=== PATIENT | female | born 1985 | race Hispanic/Latino ===

== ENCOUNTER 2018-10-15 18:24 | Emergency (ER) | payer SELFPAY ==
[2018-10-15] MEDS ORDERED: ONDANSETRON 4 MG/2 ML VIAL ONE (19:07)
[2018-10-15] MEDS ORDERED: NA CHLORIDE 0.9% 1,000 ML ONE (19:07)
[2018-10-15] MEDS ORDERED: KETOROLAC 30 MG/ML INJ ONE (19:07)
[2018-10-15 19:24] LABS: Absolute Lymphocytes (CBC) 2.9 K/uL (0.7-4.9); Basophils % 0.3 % (0-1.3); Hematocrit 31.5 % (36.0-45.0); Lymphocytes % 35.5 % (15.3-44.8); MPV 9.4 fL (7.6-11.3); RBC Red Blood Cell Count 4.68 M/uL (3.86-4.86)
[2018-10-15 19:34] LABS: Urine Blood NEGATIVE (NEG); Urine Glucose 2+ (NEG); Urine Protein NEGATIVE (NEG); Urine pH 5.5 (5.0-7.0)
[2018-10-15 19:36] LABS: ALT/SGPT 21 U/L (12-78); AST/SGOT 11 U/L (15-37); Alkaline Phosphatase 82 U/L (45-117); BUN Blood Urea Nitrogen 10 mg/dL (7-18); Bicarbonate 24 mmol/L (21-32); Bilirubin Direct 0.1 mg/dL (0-0.2); Bilirubin Total 0.7 mg/dL (0.2-1.0); Glucose Level 226 mg/dL (74-106); Lipase 303 U/L (73-393); Potassium 3.9 mmol/L (3.5-5.1); Protein, Total 7.6 g/dL (6.4-8.2); Sodium Level 136 mmol/L (136-145)
--- NOTE | 2018-10-15 20:36 | RAD REPORT ---
EXAM DESCRIPTION: CT - Abdomen Pelvis W Contrast - 10/15/2018 8:14 pm CLINICAL HISTORY: Upper abdominal pain COMPARISON: None. TECHNIQUE: Biphasic, helical CT imaging of the abdomen and pelvis was performed following 100 ml non -ionic IV contrast. No oral contrast was given. All CT scans are performed using dose optimization technique as appropriate and may include automated exposure control or mA/KV adjustment according to patient size. FINDINGS: No suspicious findings in the lung bases. Liver size is normal. In the anterior right lobe a 2.5 centimeter round circumscribed homogeneous hyp erintense focus is seen on arterial phase imaging. This is in the setting of a mild diffuse fatty inf iltration of the liver. No fat or calcium component. On venous phase imaging the mass is slightly hyp ointense to the surrounding parenchyma. No other focal liver lesions seen. Hepatic adenoma would be f avored. No prior imaging is available. An aggressive process is unlikely. This is not likely related to the patient's acute clinical presentation. Spleen and pancreas show no suspicious findings. Gallbladder and biliary tree are also without suspic ious finding. Symmetric renal function is seen with no hydronephrosis or suspicious renal mass. No pyelonephritis o r acute parenchymal process. No bladder abnormalities. Small cyst seen in the lateral left kidney. No adrenal abnormalities. No dilated bowel loops or bowel wall thickening. No appendicitis findings. A small involuting right o varian cyst is present. Uterus is heterogeneous and may contain small fibroids. No acute uterine find ing suspected. No free air, free fluid or inflammatory stranding. No hernia, mass or bulky lymphaden opathy. No suspicious bony findings. IMPRESSION: IV contrast enhanced CT imaging abdomen and pelvis shows no acute or emergent finding. The 2.5 centimeter mass in the anterior right lobe of the liver is favored to be adenoma. Aggressive etiology is not suspected. Follow-up CT or sonography in 6 months could be performed to re-evaluate o r monitor this finding.
[2018-10-15 20:41] LABS: Anisocytosis 1+; Blood Morphology Comment NOTED (NOT SEEN); Hypochromasia 1+; Ovalocytes 1+; Platelet Estimate ADEQ; Urine White Blood Cell Casts OK
--- NOTE | 2018-10-15 20:58 | EDPHYS ---
Physician Documentation [facility] Name: Monday Mackenzie Age: 33 yrs Sex: Female : 1985 Arrival Date: 10/15/2018 Time: 18:28 Bed 25 Private MD: ED Physician Rustam Chen HPI: 10/15 18:52 This 33 yrs old Female presents to ER via Unassigned with complaints of pm1 Abdominal Pain. 18:52 The patient presents with abdominal pain in the upper abdomen. Onset: The pm1 symptoms/episode began/occurred 3 day(s) ago. The symptoms radiate to back. Associated signs and symptoms: Pertinent positives: diarrhea, nausea, Pertinent negatives: chest pain, constipation, dysuria, fever, shortness of breath, vomiting. The symptoms are described as sharp, Twisting. Modifying factors: The symptoms are alleviated by nothing, the symptoms are aggravated by nothing. Severity of pain: in the emergency department the pain is actually worse. The patient has not experienced similar symptoms in the past. The patient has not recently seen a physician. AGILE QA TESTER: 19:15 LMP 09/29/2018 ca1 Historical: - Allergies: 18:56 No Known Allergies; ca1 - Home Meds: 18:56 Glimepiride Oral [Active]; ca1 - PMHx: 18:56 Diabetes - NIDDM; ca1 - PSHx: 18:56 ; ca1 - Immunization history:: Adult Immunizations up to date. - Social history:: Smoking status: Patient uses tobacco products, denies chronic smoking, but will smoke occasionally. - Ebola Screening: : Patient negative for fever greater than or equal to 101.5 degrees Fahrenheit, and additional compatible Ebola Virus Disease symptoms Patient denies exposure to infectious person Patient denies travel to an Ebola-affected area in the 21 days before illness onset No symptoms or risks identified at this time. ROS: 18:52 Constitutional: Negative for fever, chills, and weight loss, Eyes: Negative for injury, pm1 pain, redness, and discharge, ENT: Negative for injury, pain, and discharge, Neck: Negative for injury, pain, and swelling, Cardiovascular: Negative for chest pain, palpitations, and edema, Respiratory: Negative for shortness of breath, cough, wheezing, and pleuritic chest pain. 18:52 Back: Negative for injury and pain, : Negative for injury, bleeding, discharge, and swelling, MS/Extremity: Negative for injury and deformity, Skin: Negative for injury, rash, and discoloration, Neuro: Negative for headache, weakness, numbness, tingling, and seizure. 18:52 Abdomen/GI: Positive for abdominal pain, nausea, diarrhea, Negative for vomiting, constipation. Exam: 18:52 Constitutional: This is a well developed, well nourished patient who is awake, alert, pm1 and in no acute distress. Head/Face: Normocephalic, atraumatic. Eyes: Pupils equal round and reactive to light, extra-ocular motions intact. Lids and lashes normal. Conjunctiva and sclera are non-icteric and not injected. Cornea within normal limits. Periorbital areas with no swelling, redness, or edema. ENT: Nares patent. No nasal discharge, no septal abnormalities noted. Tympanic membranes are normal and external auditory canals are clear. Oropharynx with no redness, swelling, or masses, exudates, or evidence of obstruction, uvula midline. Mucous membranes moist. Neck: Trachea midline, no thyromegaly or masses palpated, and no cervical lymphadenopathy. Supple, full range of motion without nuchal rigidity, or vertebral point tenderness. No Meningismus. Chest/axilla: Normal chest wall appearance and motion. Nontender with no deformity. No lesions are appreciated. Cardiovascular: Regular rate and rhythm with a normal S1 and S2. No gallops, murmurs, or rubs. Normal PMI, no JVD. No pulse deficits. Respiratory: Lungs have equal breath sounds bilaterally, clear to auscultation and percussion. No rales, rhonchi or wheezes noted. No increased work of breathing, no retractions or nasal flaring. 18:52 Back: No spinal tenderness. No costovertebral tenderness. Full range of motion. Skin: Warm, dry with normal turgor. Normal color with no rashes, no lesions, and no evidence of cellulitis. MS/ Extremity: Pulses equal, no cyanosis. Neurovascular intact. Full, normal range of motion. 18:52 Abdomen/GI: Inspection: abdomen appears normal, Bowel sounds: normal, Palpation: soft, mild abdominal tenderness, in the epigastric area, right upper quadrant and left upper quadrant, mass, is not appreciated, rebound tenderness, is not appreciated. 18:52 Neuro: Orientation: is normal, Motor: is normal, moves all fours. Vital Signs: 18:56 BP 155 / 103; Pulse 82; Resp 18 S; Temp 98.5(O); Pulse Ox 100% on R/A; Weight 79.38 kg ca1 (R); Height 4 ft. 11 in. (149.86 cm) (R); Pain 8/10; 19:15 BP 138 / 86; Pulse 66; Resp 17 S; Pulse Ox 100% on R/A; ca1 20:00 BP 120 / 71; Pulse 86; Resp 16 S; Pulse Ox 100% on R/A; ca1 21:10 BP 128 / 81; Pulse 79; Resp 16 S; Pulse Ox 100% on R/A; ca1 18:56 Body Mass Index 35.35 (79.38 kg, 149.86 cm) ca1 MDM: 18:47 Patient medically screened. pm1 20:56 Data reviewed: vital signs. Data interpreted: Pulse oximetry: on room air is 100 %. pm1 Interpretation: normal. Counseling: I had a detailed discussion with the patient and/or guardian regarding: the historical points, exam findings, and any diagnostic results supporting the discharge/admit diagnosis, lab results, radiology results, the need for outpatient follow up, to return to the emergency department if symptoms worsen or persist or if there are any questions or concerns that arise at home. 10/15 18:51 Order name: Basic Metabolic Panel; Complete Time: 19:42 pm1 10/15 18:51 Order name: CBC with Diff; Complete Time: 20:53 pm1 10/15 18:51 Order name: Creatinine for Radiology; Complete Time: 19:42 pm1 10/15 18:51 Order name: Hepatic Function; Complete Time: 19:42 pm1 10/15 18:51 Order name: Lipase; Complete Time: 19:42 pm1 10/15 19:27 Order name: Urine Dipstick--Ancillary (enter results); Complete Time: 19:42 em1 10/15 18:51 Order name: Urine Dipstick-Ancillary (obtain specimen); Complete Time: 19:24 pm1 10/15 18:51 Order name: CT Abd/Pelvis - IV Contrast Only; Complete Time: 20:53 pm1 10/15 19:27 Order name: Urine --Ancillary (enter results); Complete Time: 19:42 em1 10/15 20:41 Order name: CBC Smear Scan; Complete Time: 20:53 EDAL 10/15 18:51 Order name: Urine Test (obtain specimen); Complete Time: 19:24 pm1 10/15 18:51 Order name: IV Saline Lock; Complete Time: 19:10 pm1 10/15 18:51 Order name: Labs collected and sent; Complete Time: 19:10 pm1 Administered Medications: 19:00 Drug: NS 0.9% 1000 ml Route: IV; Rate: 1000 ml; Site: right antecubital; ca1 20:00 Follow up: Response: No adverse reaction; IV Status: Completed infusion; IV Intake: ca1 1000ml 19:01 Drug: Zofran 4 mg Route: IVP; Site: right antecubital; ca1 20:46 Follow up: Response: No adverse reaction; Pain is decreased ca1 19:05 Drug: TORadol 30 mg Route: IVP; Site: right antecubital; ca1 20:45 Follow up: Response: No adverse reaction; Pain is decreased ca1 21:06 Drug: GI Cocktail without - (Maalox Suspension 30 ml, Lidocaine Liquid 2 % 15 ca1 ml) Route: PO; 21:09 Follow up: Response: Medication administered at discharge. ca1 Disposition: 10/15/18 20:56 Discharged to Home. Impression: Unspecified abdominal pain. - Condition is Stable. - Discharge Instructions: Abdominal Pain, Adult. - Prescriptions for Bentyl 20 mg Oral Tablet - take 1 tablet by ORAL route every 6 hours As needed; 20 tablet. Zofran 4 mg Oral Tablet - take 1 tablet by ORAL route every 12 hours As needed; 20 tablet. - Medication Reconciliation Form, Thank You Letter, Antibiotic Education, Prescription Opioid Use, Work release form form. - Follow up: Emergency Department; When: As needed; Reason: Worsening of condition. Follow up: Private Physician; When: 2 - 3 days; Reason: Recheck today's complaints, Continuance of care, Re-evaluation by your physician. - Problem is new. - Symptoms have improved. Signatures: Dispatcher [employer] EDAL Sherwin Reynoso, SYSTEM DESIGNER SYSTEM DESIGNER pm1 Cally Whitney RN RN ca1 Corrections: (The following items were deleted from the chart) 21:15 20:56 10/15/2018 20:56 Discharged to Home. Impression: Unspecified abdominal pain. ca1 Condition is Stable. Forms are Medication Reconciliation Form, Thank You Letter, Antibiotic Education, Prescription Opioid Use. Follow up: Emergency Department; When: As needed; Reason: Worsening of condition. Follow up: Private Physician; When: 2 - 3 days; Reason: Recheck today's complaints, Continuance of care, Re-evaluation by your physician. Problem is new. Symptoms have improved. pm1
--- NOTE | 2018-10-15 20:58 | ER ---
Nurse's Notes [facility] Name: Monday Mackenzie Age: 33 yrs Sex: Female : 1985 Arrival Date: 10/15/2018 Time: 18:28 Bed 25 Private MD: Diagnosis: Unspecified abdominal pain Presentation: 10/15 18:51 Presenting complaint: Presenting complaint: Patient states: I have abdominal pain for 3 ca1 days now and is worse today. Pt states pain starts at the epigastric area and radiates to the back as well as the groin. Pt reports nausea and diarrhea, but denies vomiting. 18:52 Transition of care: patient was not received from another setting of care. Onset of ca1 symptoms was October 15, 2018. Risk Assessment: Do you want to hurt yourself or someone else? Patient reports no desire to harm self or others. Initial Sepsis Screen: Does the patient meet any 2 criteria? No. Patient's initial sepsis screen is negative. Does the patient have a suspected source of infection? No. Patient's initial sepsis screen is negative. Care prior to arrival: None. 18:52 Method Of Arrival: Ambulatory ca1 18:52 Acuity: ANTONETTE 3 ca1 ADMISSIONS CONSULTANT: 19:15 LMP 09/29/2018 ca1 Historical: - Allergies: 18:56 No Known Allergies; ca1 - Home Meds: 18:56 Glimepiride Oral [Active]; ca1 - PMHx: 18:56 Diabetes - NIDDM; ca1 - PSHx: 18:56 ; ca1 - Immunization history:: Adult Immunizations up to date. - Social history:: Smoking status: Patient uses tobacco products, denies chronic smoking, but will smoke occasionally. - Ebola Screening: : Patient negative for fever greater than or equal to 101.5 degrees Fahrenheit, and additional compatible Ebola Virus Disease symptoms Patient denies exposure to infectious person Patient denies travel to an Ebola-affected area in the 21 days before illness onset No symptoms or risks identified at this time. Screenin:11 Abuse screen: Denies threats or abuse. Denies injuries from another. Nutritional ca1 screening: No deficits noted. Tuberculosis screening: No symptoms or risk factors identified. Fall Risk IV access (20 points). Assessment: 19:11 General: Appears in no apparent distress. comfortable, Behavior is calm, cooperative, ca1 appropriate for age. Pain: Complains of pain in left upper quadrant and right upper quadrant and epigastric area Pain radiates to back and pelvis Pain currently is 8 out of 10 on a pain scale. Quality of pain is described as twisting Pain began 2-3 days ago. Is intermittent. Neuro: Level of Consciousness is awake, alert, obeys commands, Oriented to person, place, time, situation. Cardiovascular: Heart tones S1 S2 present Capillary refill < 3 seconds Patient's skin is warm and dry. Pulses are all present. Respiratory: Airway is patent Respiratory effort is even, unlabored, Respiratory pattern is regular, symmetrical, Breath sounds are clear bilaterally. GI: Abdomen is flat, non-distended, Bowel sounds present X 4 quads. Abd is soft and non tender X 4 quads. Reports diarrhea, nausea, since today. : Urine is clear. EENT: No deficits noted. No signs and/or symptoms were reported regarding the EENT system. Derm: Skin is intact, Skin is pink, warm \T\ dry. Musculoskeletal: Circulation, motion, and sensation intact. Capillary refill < 3 seconds, Range of motion: intact in all extremities. 20:10 Reassessment: Patient appears in no apparent distress at this time. Patient and/or ca1 family updated on plan of care and expected duration. Pain level reassessed. Patient is alert, oriented x 3, equal unlabored respirations, skin warm/dry/pink. 21:10 Reassessment: Patient appears in no apparent distress at this time. Patient is alert, ca1 oriented x 3, equal unlabored respirations, skin warm/dry/pink. Patient states feeling better. Vital Signs: 18:56 BP 155 / 103; Pulse 82; Resp 18 S; Temp 98.5(O); Pulse Ox 100% on R/A; Weight 79.38 kg ca1 (R); Height 4 ft. 11 in. (149.86 cm) (R); Pain 8/10; 19:15 BP 138 / 86; Pulse 66; Resp 17 S; Pulse Ox 100% on R/A; ca1 20:00 BP 120 / 71; Pulse 86; Resp 16 S; Pulse Ox 100% on R/A; ca1 21:10 BP 128 / 81; Pulse 79; Resp 16 S; Pulse Ox 100% on R/A; ca1 18:56 Body Mass Index 35.35 (79.38 kg, 149.86 cm) ca1 ED Course: 18:28 Patient arrived in ED. mr 18:45 Cally Whitney, DOUGLAS is Primary Nurse. ca1 18:47 Sherwin Reynoso NP is PHCP. pm1 18:47 Rustam Chen MD is Attending Physician. pm1 18:54 Triage completed. ca1 18:56 Arm band placed on right wrist. ca1 19:11 Patient has correct armband on for positive identification. Placed in gown. Bed in low ca1 position. Call light in reach. Side rails up X 1. Pulse ox on. NIBP on. Warm blanket given. 19:11 No provider procedures requiring assistance completed. Inserted saline lock: 20 gauge ca1 in right antecubital area, using aseptic technique. Blood collected. 20:14 CT Abd/Pelvis - IV Contrast Only In Process Unspecified. EDMS 21:14 IV discontinued, intact, bleeding controlled, No redness/swelling at site. Pressure ca1 dressing applied. Administered Medications: 19:00 Drug: NS 0.9% 1000 ml Route: IV; Rate: 1000 ml; Site: right antecubital; ca1 20:00 Follow up: Response: No adverse reaction; IV Status: Completed infusion; IV Intake: ca1 1000ml 19:01 Drug: Zofran 4 mg Route: IVP; Site: right antecubital; ca1 20:46 Follow up: Response: No adverse reaction; Pain is decreased ca1 19:05 Drug: TORadol 30 mg Route: IVP; Site: right antecubital; ca1 20:45 Follow up: Response: No adverse reaction; Pain is decreased ca1 21:06 Drug: GI Cocktail without - (Maalox Suspension 30 ml, Lidocaine Liquid 2 % 15 ca1 ml) Route: PO; 21:09 Follow up: Response: Medication administered at discharge. ca1 Intake: 20:00 IV: 1000ml; Total: 1000ml. ca1 Outcome: 20:56 Discharge ordered by . pm1 21:14 Discharged to home ambulatory. ca1 21:14 Condition: stable 21:14 Discharge instructions given to patient, Instructed on discharge instructions, follow up and referral plans. medication usage, Demonstrated understanding of instructions, follow-up care, medications, Prescriptions given X 2. 21:15 Patient left the ED. ca1 Signatures: Dispatcher [employer] EDNH Elvie Vance Sherwin Reynoso, PETROLEUM PRODUCTION ENGINEER PETROLEUM PRODUCTION ENGINEER pm1 Cally Whitney, RN RN ca1 Corrections: (The following items were deleted from the chart) 18:54 18:51 Presenting complaint: ca1 ca1
[2018-10-15] MEDS ORDERED: LIDOCAINE VISCOUS 2% SOLN 15 ML UDC ONE (21:08)
[2018-10-15] MEDS ORDERED: MAGNE/ALUM HYDROXD 30 ML UCUP ONE (21:08)
[2018-10-15 22:57] VITALS: TEMP 98.5; O2SAT 100
[2018-10-15 23:01] VITALS: BP 128/81
== END 2018-10-15 21:15 | disposition home or self-care (01) ==
LOC: ER 18:24
DX: R10.10 Upper abdominal pain, unspecified (principal); E11.9 Type 2 diabetes mellitus without complications; Z72.0 Tobacco use
CPT/HCPCS: 36415; 74177; 80048; 80076; 81003; 81025; 83690; 85025; 96374; 96375; 99284; J2405; J7030; Q9967

== ENCOUNTER 2019-02-21 02:38 | Emergency (ER) | payer SELFPAY ==
--- OUTSIDE RECORDS SUMMARY | 2019-02-21 02:40 | XMS REPORT ---
:1985 [facility] Address [address] [place] [address] Dr. Unger [address] [place] [id number] Care Team Providers Name Role Phone Unavailable Unavailable Unavailable Problems This patient has no known problems. Allergies, Adverse Reactions, Alerts This patient has no known allergies or adverse reactions. Medications This patient has no known medications.
[2019-02-21] MEDS ORDERED: KETOROLAC 30 MG/ML INJ ONE (03:26)
[2019-02-21] MEDS ORDERED: NA CHLORIDE 0.9% 1,000 ML ONE (03:26)
[2019-02-21 03:33] LABS: Basophils % 0.4 % (0-1.3); Hematocrit 32.6 % (36.0-45.0); Lymphocytes % 30.9 % (15.3-44.8); MPV 9.9 fL (7.6-11.3); RBC Red Blood Cell Count 4.74 M/uL (3.86-4.86)
[2019-02-21 04:06] LABS: ALT/SGPT 25 U/L (12-78); AST/SGOT 13 U/L (15-37); Albumin 3.6 g/dL (3.4-5.0); Alkaline Phosphatase 76 U/L (45-117); BUN Blood Urea Nitrogen 5 mg/dL (7-18); Bicarbonate 27 mmol/L (21-32); Bilirubin Direct 0.2 mg/dL (0-0.2); Bilirubin Total 1.2 mg/dL (0.2-1.0); Glucose Level 314 mg/dL (74-106); Lipase 99 U/L (73-393); Potassium 3.4 mmol/L (3.5-5.1); Protein, Total 6.7 g/dL (6.4-8.2); Sodium Level 135 mmol/L (136-145)
--- NOTE | 2019-02-21 04:30 | ER ---
Nurse's Notes [facility] Name: Monday Mackenzie Age: 33 yrs Sex: Female : 1985 Arrival Date: 02/21/2019 Time: 02:39 Bed 13 Private MD: Diagnosis: Vaginitis, vulvitis and vulvovaginitis in diseases classified elsewhere;Abdominal tenderness, unspecified site Presentation: 02/21 02:51 Presenting complaint: Patient states: I STARTED HAVING VAGINAL BLEEDING WITH ABDOMINAL rv CRAMPING 3-4 DAYS AGO THEN IT STOPPED. YESTERDAY IT CAME BACK AGAIN. I DON'T KNOW IF IT HAS SOMETHING TO DO WITH MY TAMPON, BUT BEFORE THIS HAPPENED, I FORGOT TO TAKE IT OFF BEFORE I WENT TO SLEEP BECAUSE I WAS TOO TIRED AND SLEEPY. Transition of care: patient was not received from another setting of care. Onset of symptoms was February 20, 2019 at 19:00. Risk Assessment: Do you want to hurt yourself or someone else? Patient reports no desire to harm self or others. Initial Sepsis Screen: Does the patient meet any 2 criteria? No. Patient's initial sepsis screen is negative. Does the patient have a suspected source of infection? No. Patient's initial sepsis screen is negative. Care prior to arrival: None. 02:51 Method Of Arrival: Ambulatory rv 02:51 Acuity: ANTONETTE 3 rv Triage Assessment: 02:56 General: Appears uncomfortable, Behavior is calm, cooperative. Pain: Complains of pain rv in abdomen. Neuro: Level of Consciousness is awake, alert, obeys commands, Oriented to person, place, time, situation. GI: Abdomen is round non-distended. : Reports vaginal bleeding that is spotty. 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 - Social history:: Smoking status: Patient uses tobacco products, denies chronic smoking, but will smoke occasionally, Patient uses alcohol, but reports only rare drinking. - Ebola Screening: : No symptoms or risks identified at this time. Screenin:56 Abuse screen: Denies threats or abuse. Denies injuries from another. Nutritional rv screening: No deficits noted. Tuberculosis screening: No symptoms or risk factors identified. Fall Risk None identified. Assessment: 03:28 Reassessment: see triage notes. rv 04:19 Reassessment: Patient appears in no apparent distress at this time. Patient and/or rv family updated on plan of care and expected duration. Pain level reassessed. Patient is alert, oriented x 3, equal unlabored respirations, skin warm/dry/pink. 04:19 GI: Bowel sounds present X 4 quads. Abd is soft and non tender X 4 quads. rv Vital Signs: 02:53 BP 150 / 93; Pulse 73; Resp 17; Temp 98.1; Pulse Ox 99% ; Weight 72.57 kg; Height 4 ft. rv 9 in. (144.78 cm); Pain 6/10; 03:32 BP 126 / 75; Pulse 57; Resp 16; Pulse Ox 98% on R/A; rv 04:18 BP 115 / 68; Pulse 59; Resp 16; Pulse Ox 97% on R/A; rv 02:53 Body Mass Index 34.62 (72.57 kg, 144.78 cm) rv ED Course: 02:39 Patient arrived in ED. ds1 02:40 Rich Rdz MD is Attending Physician. tw4 02:50 Milan Ng RN is Primary Nurse. rv 02:53 Triage completed. rv 02:55 Arm band placed on Patient placed Patient notified of wait time. rv 02:57 Patient has correct armband on for positive identification. Pulse ox on. NIBP on. rv 03:20 Inserted saline lock: 20 gauge in right antecubital area, using aseptic technique. rv Blood collected. 03:20 Initial lab(s) drawn, by me, sent to lab. rv 04:38 No provider procedures requiring assistance completed. IV discontinued, intact, rv bleeding controlled, No redness/swelling at site. Pressure dressing applied. Administered Medications: 03:26 Drug: TORadol 30 mg Route: IVP; Site: right antecubital; rv 03:53 Follow up: Response: No adverse reaction; Pain is decreased rv 03:27 Drug: NS 0.9% 1000 ml Route: IV; Rate: 1 bolus; Site: right antecubital; rv 04:08 Follow up: IV Status: Completed infusion; IV Intake: 1000ml rv Intake: 04:08 IV: 1000ml; Total: 1000ml. rv Outcome: 04:29 Discharge ordered by . ellen 04:40 Discharged to home ambulatory. rv 04:40 Condition: good 04:40 Discharge instructions given to patient, Instructed on discharge instructions, follow up and referral plans. Demonstrated understanding of instructions, follow-up care. 04:40 Patient left the ED. rv Signatures: Socorro De Guzman ds1 Rich Rdz MD MD tw4 Milan Ng, RN RN rv
--- NOTE | 2019-02-21 04:30 | EDPHYS ---
Physician Documentation [facility] Name: Monday Mackenzie Age: 33 yrs Sex: Female : 1985 Arrival Date: 02/21/2019 Time: 02:39 Bed 13 Private MD: ED Physician Rich Rdz HPI: 02/21 03:28 This 33 yrs old Female presents to ER via Ambulatory with complaints of tw4 Abdominal Pain, Vaginal Discharge. 03:28 The patient presents with abdominal pain in the lower abdomen. Onset: The tw4 symptoms/episode began/occurred 3 day(s) ago. The symptoms do not radiate. Associated signs and symptoms: Pertinent positives: nausea, vaginal discharge, Pertinent negatives: nausea, vomiting, and diarrhea, nausea and vomiting, anorexia, blood in stools, chest pain, constipation, diarrhea, dysuria, fever, headache, hematuria, palpitations, shortness of breath. The symptoms are described as dull. Modifying factors: The symptoms are alleviated by nothing, the symptoms are aggravated by nothing. Severity of pain: At its worst the pain was moderate in the emergency department the pain is unchanged. The patient has not experienced similar symptoms in the past. 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 - Social history:: Smoking status: Patient uses tobacco products, denies chronic smoking, but will smoke occasionally, Patient uses alcohol, but reports only rare drinking. - Ebola Screening: : No symptoms or risks identified at this time. ROS: 03:28 Constitutional: Negative for fever, chills, and weight loss, Eyes: Negative for injury, tw4 pain, redness, and discharge, Cardiovascular: Negative for chest pain, palpitations, and edema, Respiratory: Negative for shortness of breath, cough, wheezing, and pleuritic chest pain, Back: Negative for injury and pain, MS/Extremity: Negative for injury and deformity, Skin: Negative for injury, rash, and discoloration, Neuro: Negative for headache, weakness, numbness, tingling, and seizure. 03:28 Abdomen/GI: Positive for abdominal pain, abdominal cramps, Negative for nausea and vomiting, nausea, vomiting, and diarrhea, nausea, vomiting, diarrhea, constipation, black/tarry stool, rectal pain, rectal bleeding, bowel incontinence, flatulence. Exam: 03:28 Constitutional: This is a well developed, well nourished patient who is awake, alert, tw4 and in no acute distress. Head/Face: Normocephalic, atraumatic. Chest/axilla: Normal chest wall appearance and motion. Nontender with no deformity. No lesions are appreciated. Cardiovascular: Regular rate and rhythm with a normal S1 and S2. No gallops, murmurs, or rubs. Normal PMI, no JVD. No pulse deficits. Respiratory: Lungs have equal breath sounds bilaterally, clear to auscultation and percussion. No rales, rhonchi or wheezes noted. No increased work of breathing, no retractions or nasal flaring. Back: No spinal tenderness. No costovertebral tenderness. Full range of motion. MS/ Extremity: Pulses equal, no cyanosis. Neurovascular intact. Full, normal range of motion. Neuro: Awake and alert, GCS 15, oriented to person, place, time, and situation. Cranial nerves II-XII grossly intact. Motor strength 5/5 in all extremities. Sensory grossly intact. Cerebellar exam normal. Normal gait. 03:28 Abdomen/GI: Inspection: abdomen appears normal, Bowel sounds: diminished, Palpation: moderate abdominal tenderness, in the right lower quadrant and left lower quadrant. Vital Signs: 02:53 BP 150 / 93; Pulse 73; Resp 17; Temp 98.1; Pulse Ox 99% ; Weight 72.57 kg; Height 4 ft. rv 9 in. (144.78 cm); Pain 6/10; 03:32 BP 126 / 75; Pulse 57; Resp 16; Pulse Ox 98% on R/A; rv 04:18 BP 115 / 68; Pulse 59; Resp 16; Pulse Ox 97% on R/A; rv 02:53 Body Mass Index 34.62 (72.57 kg, 144.78 cm) rv MDM: 03:15 Patient medically screened. tw4 02/22 01:06 Data reviewed: vital signs, nurses notes. Counseling: I had a detailed discussion with tw4 the patient and/or guardian regarding: the historical points, exam findings, and any diagnostic results supporting the discharge/admit diagnosis. Special discussion: I discussed with the patient/guardian in detail that at this point there is no indication for admission to the hospital. It is understood, however, that if the symptoms persist or worsen the patient needs to return immediately for re-evaluation. 02/21 03:02 Order name: Urine Dipstick--Ancillary (enter results) [facility] 02/21 03:02 Order name: Urine --Ancillary (enter results) [facility] 02/21 03:16 Order name: Basic Metabolic Panel; Complete Time: 04:27 [facility] 02/21 04:27 Interpretation: Normal except: NA 135; GLUC 314; BUN 5. [facility] 02/21 03:16 Order name: CBC with Diff 02/21 04:27 Interpretation: Normal except: HGB 10.4; HCT 32.6; MCV 68.8; MCH 21.9; MCHC 31.8; RDW tw4 22.6. 02/21 03:16 Order name: Creatinine for Radiology; Complete Time: 04:27 02/21 04:27 Interpretation: Within normal limits: CRE 0.61. [facility] 02/21 03:16 Order name: Hepatic Function; Complete Time: 04:27 [facility] 02/21 04:27 Interpretation: Normal except: AST 13; BILIT 1.2. 02/21 02:41 Order name: Urine Dipstick-Ancillary (obtain specimen); Complete Time: 03:01 [facility] 02/21 02:41 Order name: Urine Test (obtain specimen); Complete Time: 03:01 02/21 03:16 Order name: Lipase; Complete Time: 04:27 02/21 04:27 Interpretation: Within normal limits: LIP 99. [facility] 02/21 03:16 Order name: IV Saline Lock; Complete Time: 03:27 [facility] 02/21 03:38 Order name: CBC Smear Scan [facility] 02/21 03:16 Order name: Labs collected and sent; Complete Time: 03:27 4 Administered Medications: 02/21 03:26 Drug: TORadol 30 mg Route: IVP; Site: right antecubital; rv 03:53 Follow up: Response: No adverse reaction; Pain is decreased rv 03:27 Drug: NS 0.9% 1000 ml Route: IV; Rate: 1 bolus; Site: right antecubital; rv 04:08 Follow up: IV Status: Completed infusion; IV Intake: 1000ml rv Disposition: 02/21/19 04:29 Discharged to Home. Impression: Vaginitis, vulvitis and vulvovaginitis in diseases classified elsewhere, Abdominal tenderness, unspecified site. - Condition is Stable. - Discharge Instructions: Abdominal Pain, Adult, Vaginitis. - Medication Reconciliation Form, Thank You Letter, Antibiotic Education, Prescription Opioid Use, Work release form form. - Follow up: Private Physician; When: Upon discharge from the Emergency Department; Reason: Recheck today's complaints, Continuance of care. - Problem is new. - Symptoms have improved. Signatures: Dispatcher [employer] Rich Concepcion MD MD tw4 Milan Ng, RN RN rv Corrections: (The following items were deleted from the chart) 03:41 03:34 Abdomen Pelvis W Con+CT.RAD.BRZ ordered. [facility] 04:40 04:29 02/21/2019 04:29 Discharged to Home. Impression: Vaginitis, vulvitis and rv vulvovaginitis in diseases classified elsewhere; Abdominal tenderness, unspecified site. Condition is Stable. Forms are Medication Reconciliation Form, Thank You Letter, Antibiotic Education, Prescription Opioid Use. Follow up: Private Physician; When: Upon discharge from the Emergency Department; Reason: Recheck today's complaints, Continuance of care. Problem is new. Symptoms have improved. tw4
[2019-02-21 04:40] LABS: Anisocytosis 2+; Blood Morphology Comment NOTED (NOT SEEN); Ovalocytes 1+; Platelet Estimate ADEQ; Urine White Blood Cell Casts OK
[2019-02-21 04:49] VITALS: TEMP 98.1
[2019-02-21 04:52] VITALS: BP 115/68; O2SAT 97
[2019-02-21 05:14] LABS: Urine Blood TRACE (NEG); Urine Glucose 2+ (NEG); Urine Protein NEGATIVE (NEG); Urine pH 5.5 (5.0-7.0)
== END 2019-02-21 04:40 | disposition home or self-care (01) ==
LOC: ER 02:38
DX: N76.0 Acute vaginitis (principal); N76.2 Acute vulvitis
CPT/HCPCS: 36415; 80048; 80076; 81003; 81025; 83690; 85025; 96361; 96374; 99284; J7030

== ENCOUNTER 2019-12-30 18:24 | Emergency (ER) | payer SELFPAY ==
--- OUTSIDE RECORDS SUMMARY | 2019-12-30 18:25 | XMS REPORT | Continuity of Care Document ---
:1985 Author Organization [facility] t Address [address] [place] [address] Care Team Providers Name Role Phone Maia Rosario Attending Clinician Doctor Unassigned, Name Attending Clinician Unavailable Singer MCINTOSH Attending Clinician Iveth Brewster MD Admitting Clinician Problems This patient has no known problems. Allergies, Adverse Reactions, Alerts This patient has no known allergies or adverse reactions. Medications This patient has no known medications. Procedures This patient has no known procedures. Encounters Start End Encounter Admission Attending Care Care Encounter Source Date/Time Date/Time Type Type Clinicians Facility Department ID 2019-09-02 2019-09-02 Emergency ALBER Shrestha [id number] 19:45:09 23:40:00 Maia Tolbert [id number] [place] [id number] [place] [id number] 2019-09-02 2019-09-02 Orders Doctor MARCELL [id number] 00:00:00 00:00:00 Only UnassGAUTAM tolentino [id number] [place] [facility] [id number] 2019-04-15 2019-04-15 Emergency ALBER Quezada [id number] 07:28:53 08:44:00 Bandar Tolbert [id number] [place] [id number] [place] [phone] [id number] Results This patient has no known results.
[2019-12-30] MEDS ORDERED: PROMETHAZINE 25 MG TABLET ONE (21:55)
[2019-12-30] MEDS ORDERED: FLUORESCEIN SODIUM 1 MG/WRAP ONE (21:59)
[2019-12-30] MEDS ORDERED: TETRACAINE HCL 0.5% 4ML OPTH ONE (21:59)
--- NOTE | 2019-12-30 22:34 | ER ---
Nurse's Notes [facility] [place] Name: Monday Mackenzie Age: 34 yrs Sex: Female : 1985 Arrival Date: 12/30/2019 Time: 18:26 Bed 23 Private MD: Diagnosis: Foreign body in right eye at 6 O'clock Presentation: 12/29 18:41 Chief complaint: Patient states: Redness and swelling on the R eye started today. Every ca1 time the light hits, it gives me headaches and it's been watering and watering. Denies injury to eye. Denies blurring of vision more than normal. Coronavirus screen: Client denies travel out of the [place] in the last 14 days. At this time, the client does not indicate any symptoms associated with coronavirus-19. Ebola Screen: Patient negative for fever greater than or equal to 101.5 degrees Fahrenheit, and additional compatible Ebola Virus Disease symptoms Patient denies exposure to infectious person. Patient denies travel to an Ebola-affected area in the 21 days before illness onset. No symptoms or risks identified at this time. Initial Sepsis Screen: Does the patient meet any 2 criteria? No. Patient's initial sepsis screen is negative. Does the patient have a suspected source of infection? No. Patient's initial sepsis screen is negative. Risk Assessment: Do you want to hurt yourself or someone else? Patient reports no desire to harm self or others. Onset of symptoms was December 30, 2019. 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 - Social history:: Smoking status: Reported history of juuling and/or vaping. Screenin:01 Abuse screen: Denies threats or abuse. Denies injuries from another. Nutritional zb screening: No deficits noted. Tuberculosis screening: No symptoms or risk factors identified. Fall Risk None identified. Assessment: 20:56 General: Appears in no apparent distress. uncomfortable, Behavior is cooperative, zb appropriate for age, anxious. Pain: Complains of pain in right eye Pain radiates to top of head, right cheondoism and right side of head. Neuro: Level of Consciousness is awake, alert, Oriented to person, place, time, situation. Cardiovascular: Denies chest pain, shortness of breath, Capillary refill < 3 seconds in bilateral fingers. Respiratory: Airway is patent Respiratory effort is even, unlabored. GI: Abdomen is round Reports nausea. : No signs and/or symptoms were reported regarding the genitourinary system. EENT: Sclera/Cornea are reddened in right eye Swelling noted. . Reports pain photophobia tearing . Derm: Skin is intact, is healthy with good turgor, Skin is normal. Musculoskeletal: Circulation, motion, and sensation intact. Range of motion: intact in all extremities. 22:12 Reassessment: snellen chart performed with corrective vision 20/25 Right eye, 20/20 zb Left eye. 23:15 Reassessment: Patient appears in no apparent distress at this time. pt in room, nausea zb is decreased, pain decreased. PVU discharge instructions. Vital Signs: 18:41 BP 133 / 86; Pulse 78; Resp 16 S; Temp 98.1(TE); Pulse Ox 99% on R/A; Weight 86.18 kg ca1 (R); Height 4 ft. 9 in. (144.78 cm) (R); Pain 7/10; 23:20 BP 129 / 80; Pulse 80; Resp 16; Pulse Ox 100% on R/A; zb 18:41 Body Mass Index 41.12 (86.18 kg, 144.78 cm) ca1 ED Course: 18:26 Patient arrived in ED. ag5 18:44 Triage completed. ca1 18:44 Arm band placed on right wrist. ca1 19:45 [facility]C [facility] snw 19:46 Srikanth Vail MD is Attending Physician. snw 20:50 Yasmeen Hearn RN is Primary Nurse. zb 21:01 Patient has correct armband on for positive identification. Bed in low position. Call zb light in reach. Side rails up X 1. Pulse ox on. NIBP on. Door closed. Noise minimized. 22:10 Recheck. zb 22:29 Ivan Rios MD is Referral Physician. snw 23:30 No provider procedures requiring assistance completed. Patient did not have IV access zb during this emergency room visit. Administered Medications: 21:48 Drug: Phenergan 25 mg Route: PO; zb 23:31 Follow up: Response: No adverse reaction; Nausea is decreased zb 22:23 Drug: Tetracaine Drops 0.5 % 1 drops Route: Ophthalmic; Site: right eye; zb 22:40 Drug: [place] 10 mg-325 mg 1 tabs Route: PO; zb 23:28 Follow up: Response: No adverse reaction; Pain is decreased zb 22:40 Drug: Tetanus-Diphtheria Toxoid Adult 0.5 ml {School Physical Therapist: Paice. Exp: zb 04/19/2021. Lot #: [id number]. } Route: IM; Site: right deltoid; 23:31 Follow up: Response: No adverse reaction zb Outcome: 22:33 Discharge ordered by MD. snw 23:30 Discharged to home ambulatory, with family. zb 23:30 Condition: good 23:30 Discharge instructions given to patient, family, Instructed on discharge instructions, follow up and referral plans. medication usage, Demonstrated understanding of instructions, follow-up care, medications, Prescriptions given X 2. 23:31 Patient left the ED. zb Signatures: Katelin Wills, ASSISTANT STORE MANAGER SALES-C ASSISTANT STORE MANAGER SALES-Csnw Cally Whitney RN RN ca1 Valdo Hernandez ag5 Yasmeen Hearn RN RN zb Corrections: (The following items were deleted from the chart) 21:50 20:56 EENT: Sclera/Cornea are reddened in right eye Reports pain photophobia tearing . zb zb
--- NOTE | 2019-12-30 22:34 | EDPHYS ---
Physician Documentation [facility] Name: Monday Mackenzie Age: 34 yrs Sex: Female : 1985 Arrival Date: 12/30/2019 Time: 18:26 Bed 23 Private MD: ED Physician Srikanth Vail HPI: 12/29 23:22 This 34 yrs old Female presents to ER via Ambulatory with complaints of snw Nausea, Eye Pain, Redness of Eye. 23:23 The patient is experiencing pain, tearing, The patient sustained Unknown. to the right snw eye, caused by an unknown mechanism. Onset: The symptoms/episode began/occurred suddenly, this morning. Duration: the symptoms are continuous. Associated signs and symptoms: Pertinent positives: headache, nausea. Patient wears soft contacts. Severity of symptoms: At their worst the symptoms were moderate severe. The patient has not experienced similar symptoms in the past. It is unknown whether or not the patient has recently seen a physician. 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 - Social history:: Smoking status: Reported history of juuling and/or vaping. ROS: 23:22 Constitutional: Negative for fever, chills, and weight loss, ENT: Negative for injury, snw pain, and discharge, Neck: Negative for injury, pain, and swelling, Cardiovascular: Negative for chest pain, palpitations, and edema, Respiratory: Negative for shortness of breath, cough, wheezing, and pleuritic chest pain, Abdomen/GI: Negative for abdominal pain, nausea, vomiting, diarrhea, and constipation, Back: Negative for injury and pain, : Negative for injury, bleeding, discharge, and swelling, MS/Extremity: Negative for injury and deformity, Skin: Negative for injury, rash, and discoloration, Neuro: Negative for headache, weakness, numbness, tingling, and seizure, Psych: Negative for depression, anxiety, suicide ideation, homicidal ideation, and hallucinations. 23:22 Eyes: Positive for foreign body sensation, itching, pain, tearing, of the iris of right eye. Exam: 23:20 Constitutional: This is a well developed, well nourished patient who is awake, alert, snw and in no acute distress. Head/Face: Normocephalic, atraumatic. ENT: Nares patent. No nasal discharge, no septal abnormalities noted. Tympanic membranes are normal and external auditory canals are clear. Oropharynx with no redness, swelling, or masses, exudates, or evidence of obstruction, uvula midline. Mucous membranes moist. Neck: Trachea midline, no thyromegaly or masses palpated, and no cervical lymphadenopathy. Supple, full range of motion without nuchal rigidity, or vertebral point tenderness. No Meningismus. Chest/axilla: Normal chest wall appearance and motion. Nontender with no deformity. No lesions are appreciated. Cardiovascular: Regular rate and rhythm with a normal S1 and S2. No gallops, murmurs, or rubs. Normal PMI, no JVD. No pulse deficits. Respiratory: Lungs have equal breath sounds bilaterally, clear to auscultation and percussion. No rales, rhonchi or wheezes noted. No increased work of breathing, no retractions or nasal flaring. Abdomen/GI: Soft, non-tender, with normal bowel sounds. No distension or tympany. No guarding or rebound. No evidence of tenderness throughout. Back: No spinal tenderness. No costovertebral tenderness. Full range of motion. Skin: Warm, dry with normal turgor. Normal color with no rashes, no lesions, and no evidence of cellulitis. MS/ Extremity: Pulses equal, no cyanosis. Neurovascular intact. Full, normal range of motion. Neuro: Awake and alert, GCS 15, oriented to person, place, time, and situation. Cranial nerves II-XII grossly intact. Motor strength 5/5 in all extremities. Sensory grossly intact. Cerebellar exam normal. Normal gait. Psych: Awake, alert, with orientation to person, place and time. Behavior, mood, and affect are within normal limits. 23:20 Eyes: Periorbital structures: appear normal, Pupils: no acute changes, Extraocular movements: no acute changes, Conjunctiva: tearing noted, in right eye, Corneas: foreign body, on the right, at 6 o'clock, punctate white area, no foreign body actually visualized, Lids and lashes: appear normal, on the left. Vital Signs: 18:41 BP 133 / 86; Pulse 78; Resp 16 S; Temp 98.1(TE); Pulse Ox 99% on R/A; Weight 86.18 kg ca1 (R); Height 4 ft. 9 in. (144.78 cm) (R); Pain 7/10; 23:20 BP 129 / 80; Pulse 80; Resp 16; Pulse Ox 100% on R/A; zb 18:41 Body Mass Index 41.12 (86.18 kg, 144.78 cm) ca1 MDM: 21:28 Patient medically screened. snw 22:35 Data reviewed: vital signs, nurses notes. Data interpreted: Pulse oximetry: on room air snw is 99 %. Interpretation: normal. Counseling: I had a detailed discussion with the patient and/or guardian regarding: the historical points, exam findings, and any diagnostic results supporting the discharge/admit diagnosis, the presence of at least one elevated blood pressure reading (>120/80) during this emergency department visit, the need for outpatient follow up, for definitive care, to return to the emergency department if symptoms worsen or persist or if there are any questions or concerns that arise at home. Special discussion: Based on the history and exam findings, there is no indication for further emergent testing or inpatient evaluation. I discussed with the patient/guardian the need to see the opthamologist for further evaluation of the symptoms. 12/29 21:41 Order name: Visual Acuity; Complete Time: 22:13 snw 12/29 21:41 Order name: Eye Tray; Complete Time: 21:48 snw 12/29 21:41 Order name: Fluoresene Opth strip; Complete Time: 21:48 snw Administered Medications: 21:48 Drug: Phenergan 25 mg Route: PO; zb 23:31 Follow up: Response: No adverse reaction; Nausea is decreased zb 22:23 Drug: Tetracaine Drops 0.5 % 1 drops Route: Ophthalmic; Site: right eye; zb 22:40 Drug: [place] 10 mg-325 mg 1 tabs Route: PO; zb 23:28 Follow up: Response: No adverse reaction; Pain is decreased zb 22:40 Drug: Tetanus-Diphtheria Toxoid Adult 0.5 ml {Mexican Food Maker: [employer]. Exp: zb 04/19/2021. Lot #: [id number]. } Route: IM; Site: right deltoid; 23:31 Follow up: Response: No adverse reaction zb Disposition: 12/30 01:11 Co-signature as Attending Physician, Srikanth Vail MD. pkl Disposition: 12/30/19 22:33 Discharged to Home. Impression: Foreign body in right eye at 6 O'clock. - Condition is Stable. - Discharge Instructions: Eye Foreign Body, VIS, Tetanus, Diphtheria (Td) - CDC. - Prescriptions for Tylenol- Codeine #3 300-30 mg Oral Tablet - take 2 tablets by ORAL route every 6 hours As needed; 20 tablet. Vigamox 0.5 % Ophthalmic Drops - instill 1 drop by OPHTHALMIC route every 8 hours for 7 days; 5 milliliter. - Medication Reconciliation Form, Thank You Letter, Antibiotic Education, Prescription Opioid Use form. - Follow up: Emergency Department; When: As needed; Reason: Worsening of condition. Follow up: Ivan Rios MD; When: Tomorrow; Reason: Recheck today's complaints, Continuance of care, Re-evaluation by your physician. Signatures: Srikanth Vail MD MD pkl Waters, Shelly, CLEMENTE-C BELL RINGER-Cally Gaston RN RN ca1 Brown, Zipporah, RN RN zb Corrections: (The following items were deleted from the chart) 12/29 23:31 22:33 12/30/2019 22:33 Discharged to Home. Impression: Foreign body in right eye at 6 zb O'clock. Condition is Stable. Forms are Medication Reconciliation Form, Thank You Letter, Antibiotic Education, Prescription Opioid Use. Follow up: Emergency Department; When: As needed; Reason: Worsening of condition. Follow up: Ivan Rios; When: Tomorrow; Reason: Recheck today's complaints, Continuance of care, Re-evaluation by your physician. snw
[2019-12-30] MEDS ORDERED: TOBRAMYCIN SULF 0.3% OPTH OINT ONE (22:45)
[2019-12-30] MEDS ORDERED: HYDROCODONE/APAP 10/325 TAB ONE (22:50)
[2019-12-30] MEDS ORDERED: TETANUS & DIPHTHERIA TOX,ADULT 0.5 ML VIAL ONE (22:50)
[2019-12-31 06:53] VITALS: BP 133/86; TEMP 98.1; O2SAT 99
== END 2019-12-30 23:31 | disposition home or self-care (01) ==
LOC: ER 18:24
DX: T15.01XA Foreign body in cornea, right eye, initial encounter (principal); Z23 Encounter for immunization
CPT/HCPCS: 90471; 90714; 99283; Q0169

== ENCOUNTER 2020-02-21 04:07 | Emergency (ER) | payer SELFPAY ==
--- OUTSIDE RECORDS SUMMARY | 2020-02-21 04:09 | XMS REPORT | Continuity of Care Document ---
:1985 Author Organization [facility] t Address [address] [place] [address] Care Team Providers Name Role Phone Maia [...] Type Clinicians Facility Department ID 2019-09-02 2019-09-02 ALBER Garcia [id number] 19:45:09 23:40:00 Maia Tolbert [id number] [place] [id number] [place] [id number] 2019-09-02 2019-09-02 Orders Doctor MARCELL [id number] 00:00:00 00:00:00 Only UnassGAUTAM tolentino [id number] [facility] [id number] 2019-04-15 2019-04-15 Emergency ALBER Quezada [id number] 07:28:53 08:44:00 Bandar Tolbert [id number] [place] [id number] [place] [id number] Results This patient has no known results.
[2020-02-21 05:07] LABS: Urine Blood 1+ (NEG); Urine Glucose 2+ (NEG); Urine Protein 3+ (NEG); Urine Specific Gravity >1.030 (1.005-1.030); Urine pH 5.5 (5.0-7.0)
[2020-02-21] MEDS ORDERED: PHENAZOPYRIDINE 100MG TAB PO ONE (05:21)
[2020-02-21] MEDS ORDERED: CIPROFLOXACIN HCL 500 MG TAB ONE (05:21)
[2020-02-21] MEDS ORDERED: LIDOCAINE 1% MPF 5 ML VIAL ONE (05:21)
[2020-02-21] MEDS ORDERED: CEFTRIAXONE 1000 MG/VIAL ONE (05:22)
[2020-02-21] MEDS ORDERED: HYDROCODONE/APAP 10/325 TAB ONE (05:22)
--- NOTE | 2020-02-21 06:01 | EDPHYS ---
Physician Documentation [facility] Name: Monday Mackenzie Age: 34 yrs Sex: Female : 1985 Arrival Date: 02/21/2020 Time: 04:17 Bed 4 Private MD: MICHAEL Physician Juan rCowley HPI: 02/20 04:56 This 34 yrs old Female presents to ER via Ambulatory with complaints of Pain brenda With Urination. 04:56 The patient presents with urinary symptoms, dysuria, frequency, hesitancy, urgency. brenda Onset: The symptoms/episode began/occurred 1 day(s) ago. Modifying factors: The symptoms are alleviated by nothing, the symptoms are aggravated by nothing. Associated signs and symptoms: The patient has no apparent associated signs or symptoms. Severity of symptoms: At their worst the symptoms were mild, moderate, in the emergency department the symptoms are unchanged. The patient is sexually active, reportedly has a single partner. The patient has experienced similar episodes in the past, a few times. Historical: - Allergies: 05:00 No Known Allergies; sg - Home Meds: 04:38 Iron CR Oral [Active]; Glimepiride Oral [Active]; ea - PMHx: 04:38 Diabetes - NIDDM; Anemia; ea - PSHx: 04:38 ; ea - Immunization history:: Adult Immunizations up to date. - Social history:: Smoking status: Patient denies any tobacco usage or history of. - Family history:: not pertinent. ROS: 04:56 Constitutional: Negative for fever, chills, and weight loss, Eyes: Negative for injury, brenda pain, redness, and discharge, ENT: Negative for injury, pain, and discharge, Neck: Negative for injury, pain, and swelling, Cardiovascular: Negative for chest pain, palpitations, and edema, Respiratory: Negative for shortness of breath, cough, wheezing, and pleuritic chest pain, Back: Negative for injury and pain, MS/Extremity: Negative for injury and deformity, Skin: Negative for injury, rash, and discoloration, Neuro: Negative for headache, weakness, numbness, tingling, and seizure, Psych: Negative for depression, anxiety, suicide ideation, homicidal ideation, and hallucinations, Allergy/Immunology: Negative for hives, rash, and allergies, Endocrine: Negative for neck swelling, polydipsia, polyuria, polyphagia, and marked weight changes, Hematologic/Lymphatic: Negative for swollen nodes, abnormal bleeding, and unusual bruising. 04:56 Abdomen/GI: Positive for abdominal pain, of the suprapubic area. Exam: 04:56 Constitutional: This is a well developed, well nourished patient who is awake, alert, brenda and in no acute distress. Head/Face: Normocephalic, atraumatic. Eyes: Pupils equal round and reactive to light, extra-ocular motions intact. Lids and lashes normal. Conjunctiva and sclera are non-icteric and not injected. Cornea within normal limits. Periorbital areas with no swelling, redness, or edema. ENT: Nares patent. No nasal discharge, no septal abnormalities noted. Tympanic membranes are normal and external auditory canals are clear. Oropharynx with no redness, swelling, or masses, exudates, or evidence of obstruction, uvula midline. Mucous membranes moist. Neck: Trachea midline, no thyromegaly or masses palpated, and no cervical lymphadenopathy. Supple, full range of motion without nuchal rigidity, or vertebral point tenderness. No Meningismus. Chest/axilla: Normal chest wall appearance and motion. Nontender with no deformity. No lesions are appreciated. Cardiovascular: Regular rate and rhythm with a normal S1 and S2. No gallops, murmurs, or rubs. Normal PMI, no JVD. No pulse deficits. Respiratory: Lungs have equal breath sounds bilaterally, clear to auscultation and percussion. No rales, rhonchi or wheezes noted. No increased work of breathing, no retractions or nasal flaring. Back: No spinal tenderness. No costovertebral tenderness. Full range of motion. Skin: Warm, dry with normal turgor. Normal color with no rashes, no lesions, and no evidence of cellulitis. MS/ Extremity: Pulses equal, no cyanosis. Neurovascular intact. Full, normal range of motion. Neuro: Awake and alert, GCS 15, oriented to person, place, time, and situation. Cranial nerves II-XII grossly intact. Motor strength 5/5 in all extremities. Sensory grossly intact. Cerebellar exam normal. Normal gait. Psych: Awake, alert, with orientation to person, place and time. Behavior, mood, and affect are within normal limits. 04:56 Abdomen/GI: Inspection: distension, that is mild, Bowel sounds: normal, Liver: no appreciated palpable abnormalities, Hernia: not appreciated. Vital Signs: 04:30 BP 142 / 80; Pulse 87; Resp 16; Temp 97.7; Pulse Ox 99% on R/A; Pain 4/10; sg 06:31 BP 130 / 78; Pulse 80; Resp 18; Pulse Ox 98% ; ea MDM: 04:36 Patient medically screened. [facility] 02/20 04:37 Order name: Urine Culture [facility] 02/20 05:00 Order name: Urine Dipstick--Ancillary (enter results) 02/20 05:00 Order name: Urine --Ancillary (enter results) 02/20 05:00 Order name: CT Stone Protocol [facility] 02/20 06:11 Order name: Glucose, Ancillary Testing [facility] 02/20 04:37 Order name: Urine Dipstick-Ancillary (obtain specimen); Complete Time: 04:50 [facility] 02/20 04:37 Order name: Urine Test (obtain specimen); Complete Time: 04:51 [facility] 02/20 05:00 Order name: Blood Glucose Level; Complete Time: 06:02 [facility] Administered Medications: 05:13 Drug: [place] 10 mg-325 mg 1 tabs Route: PO; ea 05:14 Drug: Rocephin (cefTRIAXone) 1 grams Route: IM; Site: right gluteus; ea 05:14 Drug: Pyridium 200 mg Route: PO; ea 05:14 Drug: Cipro 500 mg Route: PO; ea Disposition: 02/21/20 06:00 Discharged to Home. Impression: Type 2 diabetes mellitus, Dysuria, Cystitis. - Condition is Stable. - Discharge Instructions: Dysuria, Urinary Tract Infection, Adult, Urinary Tract Infection, Adult, [id number], Type 2 Diabetes Mellitus, Diagnosis, Adult, Ogkr-ig-Fspi, Type 2 Diabetes Mellitus, Self Care, Adult. - Prescriptions for Pyridium 200 mg Oral Tablet - take 1 tablet by ORAL route every 8 hours for 3 days; 9 tablet. Cipro 500 mg Oral Tablet - take 1 tablet by ORAL route every 12 hours for 7 days; 14 tablet. Bactrim DS 800- 160 mg Oral Tablet - take 1 tablet by ORAL route every 12 hours for 7 days; 14 tablet. - Medication Reconciliation Form, Thank You Letter, Antibiotic Education, Prescription Opioid Use form. - Follow up: Private Physician; When: 2 - 3 days; Reason: Recheck today's complaints, Continuance of care, Re-evaluation by your physician. - Problem is new. - Symptoms have improved. Signatures: Dispatcher [employer] EDKalpesh Whittaker, RN RN Juan Herron MD MD cha Antunez, Elena, RN RN ea Corrections: (The following items were deleted from the chart) 06:34 06:00 02/21/2020 06:00 Discharged to Home. Impression: Type 2 diabetes mellitus; ea Dysuria; Cystitis. Condition is Stable. Discharge Instructions: Dysuria, Type 2 Diabetes Mellitus, Diagnosis, Adult, [id number]-ro-[id number], Type 2 Diabetes Mellitus, Self Care, Adult, Urinary Tract Infection, Adult, Urinary Tract Infection, Adult, [id number]. Prescriptions for Pyridium 200 mg Oral Tablet - take 1 tablet by ORAL route every 8 hours for 3 days; 9 tablet, Cipro 250 mg Oral Tablet - take 1 tablet by ORAL route every 12 hours; 14 tablet. and Forms are Medication Reconciliation Form, Thank You Letter, Antibiotic Education, Prescription Opioid Use. Follow up: Private Physician; When: 2 - 3 days; Reason: Recheck today's complaints, Continuance of care, Re-evaluation by your physician. Problem is new. Symptoms have improved. brenda
--- NOTE | 2020-02-21 06:01 | ER ---
Nurse's Notes [facility] Name: Monday Mackenzie Age: 34 yrs Sex: Female : 1985 Arrival Date: 02/21/2020 Time: 04:17 Bed 4 Private MD: Diagnosis: Type 2 diabetes mellitus;Dysuria;Cystitis Presentation: 02/20 04:37 Chief complaint: Patient states: Reports pain with urination and frequency. Pt reports ea she has been thirsty. Coronavirus screen: At this time, the client does not indicate any symptoms associated with coronavirus-19. Ebola Screen: No symptoms or risks identified at this time. Initial Sepsis Screen: Does the patient meet any 2 criteria? No. Patient's initial sepsis screen is negative. Does the patient have a suspected source of infection? Yes: Dysuria/Frequency/Urgency/UTI. Risk Assessment: Do you want to hurt yourself or someone else? Patient reports no desire to harm self or others. Onset of symptoms was February 21, 2020. 04:37 Method Of Arrival: Ambulatory ea 04:37 Acuity: ANTONETTE 3 ea Triage Assessment: 04:54 General: Appears in no apparent distress. Behavior is calm, cooperative, appropriate ea for age. Pain: Denies pain. Neuro: Level of Consciousness is awake, alert, obeys commands, Oriented to person, place, time, situation. Cardiovascular: Patient's skin is warm and dry. Respiratory: Airway is patent Respiratory effort is even, unlabored, Respiratory pattern is regular, symmetrical. Derm: Skin is pink, warm \T\ dry. Historical: - Allergies: 05:00 No Known Allergies; sg - Home Meds: 04:38 Iron CR Oral [Active]; Glimepiride Oral [Active]; ea - PMHx: 04:38 Diabetes - NIDDM; Anemia; ea - PSHx: 04:38 ; ea - Immunization history:: Adult Immunizations up to date. - Social history:: Smoking status: Patient denies any tobacco usage or history of. - Family history:: not pertinent. Screenin:36 Abuse screen: Denies threats or abuse. Nutritional screening: No deficits noted. ea Tuberculosis screening: No symptoms or risk factors identified. Fall Risk None identified. Assessment: 04:54 Reassessment: see triage assessment. ea 06:31 Reassessment: Patient and/or family updated on plan of care and expected duration. Pain ea level reassessed. Patient is alert, oriented x 3, equal unlabored respirations, skin warm/dry/pink. Discharge instruction given to patient, verbalized the understanding of instruction. Pt left ED ambulatory tolerating well. Vital Signs: 04:30 BP 142 / 80; Pulse 87; Resp 16; Temp 97.7; Pulse Ox 99% on R/A; Pain 4/10; sg 06:31 BP 130 / 78; Pulse 80; Resp 18; Pulse Ox 98% ; ea ED Course: 04:17 Patient arrived in ED. ag3 04:36 Yina Ba, RN is Primary Nurse. [place] 04:36 Juan Crowley MD is Attending Physician. [facility] 04:36 Patient has correct armband on for positive identification. Bed in low position. Call ea light in reach. 04:37 Triage completed. ea 04:37 Arm band placed on right wrist. Patient placed in an exam room, on a stretcher, on ea pulse oximetry. 05:00 Urine collected: clean catch specimen, clear. sg 05:43 CT Stone Protocol In Process Unspecified. EDWY 06:31 No provider procedures requiring assistance completed. Patient did not have IV access ea during this emergency room visit. Administered Medications: 05:13 Drug: [place] 10 mg-325 mg 1 tabs Route: PO; ea 05:14 Drug: Rocephin (cefTRIAXone) 1 grams Route: IM; Site: right gluteus; ea 05:14 Drug: Pyridium 200 mg Route: PO; ea 05:14 Drug: Cipro 500 mg Route: PO; ea Outcome: 06:00 Discharge ordered by . brenda 06:31 Discharged to home ambulatory, with family. ea 06:31 Condition: stable 06:31 Discharge instructions given to patient. 06:34 Patient left the ED. ea Signatures: Dispatcher [employer] EDMS Kalpesh Desai RN RN sg Anderson, Corey, MD MD cha Antunez, Elena RN Kallie Sierra ea ag3 Corrections: (The following items were deleted from the chart) 04:54 04:37 Chief complaint: Patient states: Reports pain with urination and frequency ea ea
[2020-02-21 06:38] VITALS: TEMP 97.7
[2020-02-21 06:40] VITALS: BP 130/78; O2SAT 98
--- NOTE | 2020-02-21 18:39 | RAD REPORT ---
EXAM DESCRIPTION: CT - Stone Protocol - 02/21/2020 7:08 am CLINICAL HISTORY: The patient is 34 years old and is Female; Abd pain;Hematuria TECHNIQUE: Axial computed tomography images of the abdomen and pelvis without intravenous contrast. Sagittal and coronal reformatted images were created and reviewed. This CT exam was performed usi ng one or more of the following dose reduction techniques: automated exposure control, adjustment o f the mA and/or kV according to patient size, and/or use of iterative reconstruction technique. COMPARISON: CT of the abdomen and pelvis October 15, 2018 FINDINGS: LUNG BASES: Unremarkable. No mass. No consolidation. ABDOMEN: LIVER: The liver is enlarged. GALLBLADDER AND BILE DUCTS: The gallbladder is contracted. PANCREAS: Unremarkable. No ductal dilation. SPLEEN: Unremarkable. ADRENALS: Unremarkable. No mass. KIDNEYS AND URETERS: Punctate right intrarenal calcification is present. There is no hydronephros is or Hydroureter of either kidney. No obstructing renal or ureteral calculus is seen. STOMACH AND BOWEL: The stomach is distended with food contents. The small bowel is normal in chloe lety. Minimal stool is present throughout the colon. There is no mucosal thickening or evidence of bow el obstruction. PELVIS: APPENDIX: The appendix is normal in caliber without surrounding inflammation. BLADDER: Mild diffuse bladder wall thickening with surrounding inflammatory stranding is present. No stones. REPRODUCTIVE: Unremarkable as visualized. ABDOMEN and PELVIS: INTRAPERITONEAL SPACE: Unremarkable. No free air. No significant fluid collection. BONES/JOINTS: No acute fracture. SOFT TISSUES: A fat-containing umbilical hernia is present. VASCULATURE: Several calcified phleboliths are present within the pelvis. No abdominal aortic a neurysm. LYMPH NODES: Unremarkable. No enlarged lymph nodes. IMPRESSION: 1. Diffuse bladder wall thickening with surrounding inflammation suggestive of cystiti s. 2. Right nephrolithiasis without obstruction. Electronically signed by: Raven Lawrence MD 02/21/2020 5:49 AM PRIVACY SPECIALIST Due to temporary technical issues with the PACS/Fluency reporting system, reports are being signed by the in house radiologists without review as a courtesy to insure prompt reporting. The interpreting radiologist is fully responsible for the content of the report.
== END 2020-02-21 06:34 | disposition home or self-care (01) ==
LOC: ER 04:07
DX: N30.90 Cystitis, unspecified without hematuria (principal); E11.9 Type 2 diabetes mellitus without complications; D64.9 Anemia, unspecified
CPT/HCPCS: 74176; 76377; 81003; 81025; 82947; 87086; 87088; 96372; 99284

== ENCOUNTER 2020-11-24 02:23 | Emergency (ER) | payer SELFPAY ==
--- NOTE | 2020-11-24 03:47 | ER ---
Nurse's Notes [facility] Name: Monday Mackenzie Age: 35 yrs Sex: Female : 1985 Arrival Date: 11/24/2020 Time: 02:26 Bed 10 Private MD: Diagnosis: Acute tonsillitis, unspecified Presentation: 11/24 02:50 Chief complaint: Patient states: States generalized body aches and sore throat for past wg 2 days. States took motrin 800mg at 2000 last night. Pt denies SOB, CP, N/V/D, fever, chills. Coronavirus screen: Vaccine status: Patient reports being unvaccinated. Client presents with at least one sign or symptom that may indicate coronavirus-19. Standard/surgical mask placed on the client. Provider contacted for isolation considerations. Ebola Screen: Patient negative for fever greater than or equal to 101.5 degrees Fahrenheit, and additional compatible Ebola Virus Disease symptoms Patient denies exposure to infectious person. Patient denies travel to an Ebola-affected area in the 21 days before illness onset. No symptoms or risks identified at this time. Initial Sepsis Screen: Does the patient meet any 2 criteria? Yes Does the patient have a suspected source of infection? No. Patient's initial sepsis screen is negative. Risk Assessment: Do you want to hurt yourself or someone else? Patient reports no desire to harm self or others. Onset of symptoms was November 22, 2020. 02:50 Method Of Arrival: Ambulatory 02:50 Acuity: ANTONETTE 3 wg Triage Assessment: 02:52 General: Appears uncomfortable, obese, well groomed, Behavior is calm, cooperative, wg appropriate for age. Pain: Complains of pain in Generalized body aches, sore throat. EENT: Reports sore throat. . 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 - Social history:: Smoking status: unknown. Screenin:00 Abuse screen: Denies threats or abuse. Denies injuries from another. Nutritional dc2 screening: No deficits noted. Tuberculosis screening: No symptoms or risk factors identified. Fall Risk None identified. No fall in past 12 months (0 pts). Assessment: 03:00 General: Appears comfortable, uncomfortable, well groomed, well developed, Behavior is dc2 calm, cooperative. Pain: Complains of pain in throat and head. 03:00 Neuro: No deficits noted. Respiratory: No deficits noted. Respiratory effort is even, dc2 unlabored, Breath sounds are clear bilaterally. EENT: Throat is reddened has enlarged tonsils bilaterally Reports difficulty swallowing since a couple of days. Derm: No deficits noted. Musculoskeletal: No deficits noted. 03:00 Respiratory: Airway is patent. dc2 Vital Signs: 02:50 BP 134 / 85; Pulse 94; Resp 18; Temp 99.1; Pulse Ox 99% on R/A; Weight 77.11 kg; Height wg 4 ft. 9 in. (144.78 cm); Pain 9/10; 03:25 BP 131 / 80; Pulse 85; Resp 17; Temp 99.2; Pulse Ox 99% ; Pain 10/10; dc2 04:12 BP 126 / 83; Pulse 86; Resp 18; Pulse Ox 99% ; Pain 10/10; dc2 02:50 Body Mass Index 36.79 (77.11 kg, 144.78 cm) ED Course: 02:26 Patient arrived in ED. wm 02:52 Triage completed. wg 02:52 Arm band placed on right wrist. wg 02:57 Magda Tracy, RN is Primary Nurse. dc2 03:00 Patient has correct armband on for positive identification. Call light in reach. dc2 03:07 Strep Sent. dc2 03:23 Influenza Screen (a \T\ B) Sent. dc2 03:27 Juan Crowley MD is Attending Physician. brenda 04:19 No provider procedures requiring assistance completed. dc2 04:20 Patient did not have IV access during this emergency room visit. dc2 Administered Medications: 04:10 Drug: penicillin G Benzathine 1.2 million units Route: IM; Site: left ventrogluteal; dc2 04:17 Follow up: Response: No adverse reaction dc2 04:10 Drug: Clindamycin 300 mg Route: PO; dc2 04:17 Follow up: Response: Medication administered at discharge. dc2 04:11 Drug: Decadron (dexamethasone) 10 mg Route: IM; Site: right ventrogluteal; dc2 04:17 Follow up: Response: Medication administered at discharge. dc2 Outcome: 03:46 Discharge ordered by MD. gutierrez 04:20 Discharged to home ambulatory. dc2 04:20 Condition: stable 04:20 Discharge instructions given to patient, Instructed on discharge instructions, Demonstrated understanding of instructions, Prescriptions given X 1. 04:25 Patient left the ED. dc2 Signatures: Juan Crowley MD MD cha Marsh, Wendy wm Gamba, Liam, Magda Slade RN RN dc2
--- NOTE | 2020-11-24 03:47 | EDPHYS ---
Physician Documentation [facility] Priti Name: Monday Mackenzie Age: 35 yrs Sex: Female : 1985 Arrival Date: 11/24/2020 Time: 02:26 Bed 10 Private MD: ED Physician Juan Crowley HPI: 11/24 03:40 This 35 yrs old Female presents to ER via Ambulatory with complaints of Pain brenda All Over, Sore Throat. 03:40 The patient presents with sore throat. The patient describes throat pain as raw. Onset: brenda The symptoms/episode began/occurred 2 day(s) ago. Severity of symptoms: At their worst the symptoms were mild, in the emergency department the symptoms are unchanged. Modifying factors: The symptoms are alleviated by nothing, the symptoms are aggravated by nothing. Associated signs and symptoms: The patient has no apparent associated signs or symptoms. The patient has not experienced similar symptoms in the past. 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 - Social history:: Smoking status: unknown. ROS: 03:41 Constitutional: Negative for fever, chills, and weight loss, Eyes: Negative for injury, brenda pain, redness, and discharge, Neck: Negative for injury, pain, and swelling, Cardiovascular: Negative for chest pain, palpitations, and edema, Respiratory: Negative for shortness of breath, cough, wheezing, and pleuritic chest pain, Abdomen/GI: Negative for abdominal pain, nausea, vomiting, diarrhea, and constipation, Back: Negative for injury and pain, : Negative for injury, bleeding, discharge, and swelling, MS/Extremity: Negative for injury and deformity, Skin: Negative for injury, rash, and discoloration, Neuro: Negative for headache, weakness, numbness, tingling, and seizure, Psych: Negative for depression, anxiety, suicide ideation, homicidal ideation, and hallucinations, Allergy/Immunology: Negative for hives, rash, and allergies, Endocrine: Negative for neck swelling, polydipsia, polyuria, polyphagia, and marked weight changes, Hematologic/Lymphatic: Negative for swollen nodes, abnormal bleeding, and unusual bruising. 03:41 ENT: Positive for sore throat. Exam: 03:41 Constitutional: This is a well developed, well nourished patient who is awake, alert, brenda and in no acute distress. Head/Face: Normocephalic, atraumatic. Eyes: Pupils equal round and reactive to light, extra-ocular motions intact. Lids and lashes normal. Conjunctiva and sclera are non-icteric and not injected. Cornea within normal limits. Periorbital areas with no swelling, redness, or edema. Neck: Trachea midline, no thyromegaly or masses palpated, and no cervical lymphadenopathy. Supple, full range of motion without nuchal rigidity, or vertebral point tenderness. No Meningismus. Chest/axilla: Normal chest wall appearance and motion. Nontender with no deformity. No lesions are appreciated. Cardiovascular: Regular rate and rhythm with a normal S1 and S2. No gallops, murmurs, or rubs. Normal PMI, no JVD. No pulse deficits. Respiratory: Lungs have equal breath sounds bilaterally, clear to auscultation and percussion. No rales, rhonchi or wheezes noted. No increased work of breathing, no retractions or nasal flaring. Abdomen/GI: Soft, non-tender, with normal bowel sounds. No distension or tympany. No guarding or rebound. No evidence of tenderness throughout. Back: No spinal tenderness. No costovertebral tenderness. Full range of motion. Skin: Warm, dry with normal turgor. Normal color with no rashes, no lesions, and no evidence of cellulitis. MS/ Extremity: Pulses equal, no cyanosis. Neurovascular intact. Full, normal range of motion. Neuro: Awake and alert, GCS 15, oriented to person, place, time, and situation. Cranial nerves II-XII grossly intact. Motor strength 5/5 in all extremities. Sensory grossly intact. Cerebellar exam normal. Normal gait. 03:41 ENT: Posterior pharynx: Tonsils: bilaterally enlarged, Uvula: midline, non-edematous, no erythema, swelling, that is mild, erythema, that is mild, exudate, that is mild, peritonsillar mass, is not appreciated. Vital Signs: 02:50 BP 134 / 85; Pulse 94; Resp 18; Temp 99.1; Pulse Ox 99% on R/A; Weight 77.11 kg; Height wg 4 ft. 9 in. (144.78 cm); Pain 9/10; 03:25 BP 131 / 80; Pulse 85; Resp 17; Temp 99.2; Pulse Ox 99% ; Pain 10/10; dc2 04:12 BP 126 / 83; Pulse 86; Resp 18; Pulse Ox 99% ; Pain 10/10; dc2 02:50 Body Mass Index 36.79 (77.11 kg, 144.78 cm) wg MDM: 03:27 Patient medically screened. [facility] 03:43 Differential diagnosis: group A strep tonsillitis, influenza, pharyngitis, brenda retropharyngeal abcess tonsillitis, upper respiratory infection. Data reviewed: vital signs, nurses notes. Data interpreted: monitor and storage bin tender: rate is 94 beats/min, rhythm is regular, Pulse oximetry: on room air is 99 %. Test interpretation: by ED physician or midlevel provider:. 11/24 03:05 Order name: Strep tx2 11/24 03:17 Order name: Influenza Screen (a \T\ B) tx2 11/24 03:56 Order name: Throat Culture EDMS Administered Medications: 04:10 Drug: penicillin G Benzathine 1.2 million units Route: IM; Site: left ventrogluteal; dc2 04:17 Follow up: Response: No adverse reaction dc2 04:10 Drug: Clindamycin 300 mg Route: PO; dc2 04:17 Follow up: Response: Medication administered at discharge. dc2 04:11 Drug: Decadron (dexamethasone) 10 mg Route: IM; Site: right ventrogluteal; dc2 04:17 Follow up: Response: Medication administered at discharge. dc2 Disposition Summary: 11/24/20 03:46 Discharge Ordered Location: Home brenda Problem: new brenda Symptoms: have improved brenda Condition: Stable brenda Diagnosis - Acute tonsillitis, unspecified brenda Followup: brenda - With: Private Physician - When: 2 - 3 days - Reason: Recheck today's complaints, Re-evaluation by your physician Discharge Instructions: - Discharge Summary Sheet brenda - Tonsillitis brenda - Upper Respiratory Infection, Adult brenda - Tonsillitis, [id number] brenda Forms: - Medication Reconciliation Form brenda - Thank You Letter brenda - Antibiotic Education brenda - Prescription Opioid Use brenda Prescriptions: - Clindamycin HCl 300 mg Oral Capsule - take 1 capsule by ORAL route every 6 hours for 7 days; 28 capsule; Refills: 0, brenda Product Selection Permitted Signatures: Dispatcher [employer] Juan Mancilla MD MD cha Gamba, Liam, RN wg Charters, Denise, RN RN dc2
[2020-11-24] MEDS ORDERED: dexAMETHasone 10 MG/ML VIAL ONE (04:25)
[2020-11-24] MEDS ORDERED: ACETAMINOPHEN 500 MG TAB ONE (04:25)
[2020-11-24] MEDS ORDERED: PEN G BENZ LA 1.2MU/2ML SYRINGE IM ONE (04:26)
[2020-11-24 04:35] VITALS: O2SAT 99
[2020-11-24 04:37] VITALS: TEMP 99.2
[2020-11-24 04:39] VITALS: BP 126/83
== END 2020-11-24 04:25 | disposition home or self-care (01) ==
LOC: ER 02:23
DX: J03.90 Acute tonsillitis, unspecified (principal); E11.9 Type 2 diabetes mellitus without complications
CPT/HCPCS: 87070; 87081; 87804; 96372; 99283; J0561; J1100

== ENCOUNTER → 2023-01-29 | Emergency (ER) | payer SELFPAY ==
[~2023-01-29] MED LIST: ACETAMINOPHEN 500 MG TAB ONE; KETOROLAC 30 MG/ML INJ ONE
--- OUTSIDE RECORDS SUMMARY | 2023-01-29 03:32 | XMS REPORT | Continuity of Care Document ---
Author Name Unknown Address [address] [facility] [place] [address] [facility] thconnect Address [address] [facility] [place] [address] Care Team Providers Care Director Maternal Child Name Role Phone [facility] Primary [place] [facility] Physician Unava ilable Doctor Unassigned[facility] [place] [facility] [place] Attending Clinician U fengailKYARA Patricia Attending Clinician Unavailable Kyara Quezada DO Attending Clinician [phone] FLORECITA MENDOZA Attending Clinician Unavailable CALLIE PADILLA Attending Clinician Unavailab Calile Montgomery DO Attending Clinician [phone] Axel Morrison MD Attending Clinician [phone] AXEL MORRISON Attending Clinician Unavailable Elayne Warren MD Attending Clinician [phone] TARA VELASQUEZ Attending Clinician Unavaila Tara Wren Attending Clinician [phone] JOSÉ HARMAN Attending Clinician Unavailable Keenan Gallardo MD Attending Clinician [phone] José Harman MD Attending Clinician [phone] ELLEN CHEN Attending Clinician Unavailable Ellen Chen APN Attending Clinician [phone] Fady SUTHERLANDMaia S Attending Clinician Ney ARMENDARIZ, Jasson Lazaro Attending Clinician [phone] CALLIE PADILLA Admitting Clinician Unavailab le OPHTHAMOLOGY Admitting Clinician Unavailable Ney ARMENDARIZ, Jasson Lazaro Admitting Clinician [phone] Payers Payer Name Policy Type Policy Number Effective Date Expirati on Date Source MEDICAID PENDING PENDING 2021 00:00:00 Problems Condition Name Condition Details Condition Category Status Onset Date Resolution Date Last Treatment Date Treating Clinician Comments Source Lump or mass in breast Lump or mass in breast Disease Active 11-05 00:00: 00 [facility] Abnormal uterine bleeding (AUB) Abnormal uterine bleeding (AUB) Disease Active 10-24 00:00: 00 [facility] Allergies, Adverse Reactions, Alerts Allergy Name Allergy Type Status Severity Reaction(s) Onset Date Inactive Date Treating Clinician Comments Source NO KNOWN ALLERGIE S Drug Class Active [facility] Social History Social Habit Start Date Stop Date Quantity Comments Source History SDOH Alcohol Frequency [facility] History SDOH Alcohol Std Drinks [facility] History SDOH Alcohol Binge [facility] History of tobacco use Occasional tobacco smoker [facility] Exposure to SARS-CoV-2 (event) 2022-02-17 00:00:00 2022-02-27 05:05:00 Not sure [facility] Alcohol intake 2022-02-27 00:00:00 2022-02-27 00:00:00 0 /d [facility] Tobacco use and exposure 2014-11-05 00:00:00 2014-11-05 00:00:00 Smokeless tobacco non-user [facility] Tobacco Comment 2014-10-23 00:00:00 2014-10-23 00:00:00 smokes one cigarette monthly [facility] Alcohol Comment 2014-10-23 00:00:00 2014-10-23 00:00:00 rarely [facility] Sex Assigned At 1985 00:00:00 1985 00:00:00 [facility] Smoking Status Start Date Stop Date Source Occasional tobacco smoker 2014-11-05 00:00:00 [facility] Medications Ordered Medication Name Filled Medication Name Start Date Stop Date Current Medication? Ordering Clinician Indication Dosage Frequency Signature (SIG) Comments Components Source atorvastati n 20 mg tablet 05-25 00:00: 00 Yes [id number] 20mg Take 1 tablet by mouth at bedtime. [facility] semaglutide (OZEMPIC) 0.25 mg or 0.5 mg(2 mg/1.5 mL) PnIj 05-25 00:00: 00 Yes [id number] .5mg inject 0.5 mg under the skin weekly. [facility] ferrous sulfate 325 mg (65 mg iron) EC tablet 05-25 00:00: 00 Yes [id number] 325mg Take 1 tablet by mouth in the morning and 1 tablet at noon and 1 tablet in the evening. Take with meals. [facility] gabapentin 300 mg capsule 05-25 00:00: 00 Yes [id number] 600mg Take 2 capsules by mouth at bedtime. [facility] losartan 50 mg tablet 05-25 00:00: 00 Yes [id number] 50mg Take 1 tablet by mouth in the morning. [facility] metformin ER 500 mg 24 hr tablet 05-25 00:00: 00 Yes [id number] 1000mg Take 2 tablets by mouth 2 (two) times daily before breakfast and dinner. [facility] ondansetron (ZOFRAN ODT) 4 mg disintegrat ing tablet 05-25 00:00: 00 Yes [id number] 4mg Take 1 tablet by mouth every 8 (eight) hours as needed for Nausea and Vomiting (N/V). [facility] ibuprofen (IBU) tablet 600 mg 02-27 11:15: 00 02-27 11:19 :00 No 600mg 600 mg, Oral, ONCE, 1 dose, On 02/27/22 at 0515, HAFSA [facility] chlorphenir amine 4 mg tablet 02-27 00:00: 00 Yes [id number] 4mg Take 1 tablet by mouth every 6 (six) hours as needed for Allergies or Runny nose. [facility] levocetiriz ine (XYZAL) 5 mg tablet 02-27 00:00: 00 03-30 05:59 :00 No [id number] 5mg Take 1 tablet by mouth every evening for 30 days. [facility] ferrous sulfate 325 mg (65 mg iron) EC tablet 10-06 00:00: 00 Yes [id number] 325mg Take 1 tablet by mouth in the morning and 1 tablet at noon and 1 tablet in the evening. Take with meals. [facility] gabapentin 300 mg capsule 10-06 00:00: 00 Yes [id number] 600mg Take 2 capsules by mouth at bedtime. [facility] ferrous sulfate 325 mg (65 mg iron) EC tablet 10-06 00:00: 00 Yes [id number] 325mg Take 1 tablet by mouth in the morning and 1 tablet at noon and 1 tablet in the evening. Take with meals. [facility] gabapentin 300 mg capsule 10-06 00:00: 00 Yes [id number] 600mg Take 2 capsules by mouth at bedtime. [facility] ferrous sulfate 325 mg (65 mg iron) EC tablet 10-06 00:00: 00 Yes [id number] 325mg Take 1 tablet by mouth in the morning and 1 tablet at noon and 1 tablet in the evening. Take with meals. [facility] gabapentin 300 mg capsule 10-06 00:00: 00 Yes [id number] 600mg Take 2 capsules by mouth at bedtime. [facility] HYDROcodone -acetaminop hen (NORCO 5) 5-325 mg tablet 1 tablet 10-02 23:30: 00 10-02 23:17 :00 No 1{tbl} 1 tablet, Oral, ONCE, 1 dose, On 10/02/21 at 1830, HAFSA [facility] ondansetron (ZOFRAN ODT) 4 mg disintegrat ing tablet 07-15 00:00: 00 Yes [id number] 4mg Take 1 tablet by mouth every 8 (eight) hours as needed for Nausea and Vomiting (N/V). [facility] metformin ER 500 mg 24 hr tablet 07-15 00:00: 00 Yes [id number] 1000mg Take 2 tablets by mouth 2 (two) times daily before breakfast and dinner. [facility] losartan 50 mg tablet 07-15 00:00: 00 Yes [id number] 50mg Take 1 tablet by mouth daily. [facility] glipiZIDE 10 mg tablet 07-15 00:00: 00 Yes [id number] 10mg Take 1 tablet by mouth 2 (two) times daily before breakfast and dinner. [facility] gabapentin 300 mg capsule 07-15 00:00: 00 Yes [id number] 600mg Take 2 capsules by mouth at bedtime. [facility] ferrous sulfate 325 mg (65 mg iron) EC tablet 07-15 00:00: 00 Yes [id number] 325mg Take 1 tablet by mouth 3 (three) times daily with meals. [facility] atorvastati n 20 mg tablet 07-15 00:00: 00 Yes [id number] 20mg Take 1 tablet by mouth at bedtime. [facility] ondansetron (ZOFRAN ODT) 4 mg disintegrat ing tablet 07-15 00:00: 00 Yes [id number] 4mg Take 1 tablet by mouth every 8 (eight) hours as needed for Nausea and Vomiting (N/V). [facility] metformin ER 500 mg 24 hr tablet 07-15 00:00: 00 Yes [id number] 1000mg Take 2 tablets by mouth 2 (two) times daily before breakfast and dinner. [facility] losartan 50 mg tablet 07-15 00:00: 00 Yes [id number] 50mg Take 1 tablet by mouth daily. [facility] glipiZIDE 10 mg tablet 07-15 00:00: 00 Yes [id number] 10mg Take 1 tablet by mouth 2 (two) times daily before breakfast and dinner. [facility] gabapentin 300 mg capsule 07-15 00:00: 00 Yes [id number] 600mg Take 2 capsules by mouth at bedtime. [facility] ferrous sulfate 325 mg (65 mg iron) EC tablet 07-15 00:00: 00 Yes [id number] 325mg Take 1 tablet by mouth 3 (three) times daily with meals. [facility] atorvastati n 20 mg tablet 07-15 00:00: 00 Yes [id number] 20mg Take 1 tablet by mouth at bedtime. [facility] ondansetron (ZOFRAN ODT) 4 mg disintegrat ing tablet 07-15 00:00: 00 Yes [id number] 4mg Take 1 tablet by mouth every 8 (eight) hours as needed for Nausea and Vomiting (N/V). [facility] metformin ER 500 mg 24 hr tablet 07-15 00:00: 00 Yes [id number] 1000mg Take 2 tablets by mouth 2 (two) times daily before breakfast and dinner. [facility] losartan 50 mg tablet 07-15 00:00: 00 Yes [id number] 50mg Take 1 tablet by mouth daily. [facility] atorvastati n 20 mg tablet 07-15 00:00: 00 Yes [id number] 20mg Take 1 tablet by mouth at bedtime. [facility] ondansetron (ZOFRAN ODT) 4 mg disintegrat ing tablet 07-15 00:00: 00 Yes [id number] 4mg Take 1 tablet by mouth every 8 (eight) hours as needed for Nausea and Vomiting (N/V). [facility] metformin ER 500 mg 24 hr tablet 07-15 00:00: 00 Yes [id number] 1000mg Take 2 tablets by mouth 2 (two) times daily before breakfast and dinner. [facility] losartan 50 mg tablet 07-15 00:00: 00 Yes [id number] 50mg Take 1 tablet by mouth daily. [facility] atorvastati n 20 mg tablet 07-15 00:00: 00 Yes [id number] 20mg Take 1 tablet by mouth at bedtime. [facility] ondansetron (ZOFRAN ODT) 4 mg disintegrat ing tablet 07-15 00:00: 00 Yes [id number] 4mg Take 1 tablet by mouth every 8 (eight) hours as needed for Nausea and Vomiting (N/V). [facility] metformin ER 500 mg 24 hr tablet 07-15 00:00: 00 Yes [id number] 1000mg Take 2 tablets by mouth 2 (two) times daily before breakfast and dinner. [facility] losartan 50 mg tablet 07-15 00:00: 00 Yes [id number] 50mg Take 1 tablet by mouth daily. [facility] atorvastati n 20 mg tablet 07-15 00:00: 00 Yes [id number] 20mg Take 1 tablet by mouth at bedtime. [facility] dulaglutide (TRULICITY) 1.5 mg/0.5 mL PnIj 2-0 - 00:00: 00 Yes [id number] 1.5mg inject 1.5 mg under the skin weekly. [facility] dulaglutide (TRULICITY) 1.5 mg/0.5 mL PnIj 2-0 - 00:00: 00 Yes [id number] 1.5mg inject 1.5 mg under the skin weekly. [facility] dulaglutide (TRULICITY) 1.5 mg/0.5 mL PnIj 2-0 2- 00:00: 00 Yes [id number] 1.5mg inject 1.5 mg under the skin weekly. [facility] dulaglutide (TRULICITY) 1.5 mg/0.5 mL PnIj 2022-0 2- 00:00: 00 Yes [id number] 1.5mg inject 1.5 mg under the skin weekly. [facility] dulaglutide (TRULICITY) 1.5 mg/0.5 mL PnIj 2022-0 2- 00:00: 00 Yes [id number] 1.5mg inject 1.5 mg under the skin weekly. [facility] prednisoLON E acetate (PRED FORTE) 1 % ophthalmic suspension drops 2020-02 2 00:00: 00 Yes [id number] 1[drp] Place 1 Drop in right eye 4 (four) times daily. [facility] prednisoLON E acetate (PRED FORTE) 1 % ophthalmic suspension drops 2020-02 2- 00:00: 00 Yes [id number] 1[drp] Place 1 Drop in right eye 4 (four) times daily. [facility] prednisoLON E acetate (PRED FORTE) 1 % ophthalmic suspension drops 2020-02 2 00:00: 00 Yes [id number] 1[drp] Place 1 Drop in right eye 4 (four) times daily. [facility] prednisoLON E acetate (PRED FORTE) 1 % ophthalmic suspension drops 2020-02 00:00: 00 Yes [id number] 1[drp] Place 1 Drop in right eye 4 (four) times daily. [facility] prednisoLON E acetate (PRED FORTE) 1 % ophthalmic suspension drops 2020-02 2 00:00: 00 Yes [id number] 1[drp] Place 1 Drop in right eye 4 (four) times daily. [facility] prednisoLON E acetate (PRED FORTE) 1 % ophthalmic suspension drops 2020-02 2 00:00: 00 Yes [id number] 1[drp] Place 1 Drop in right eye 4 (four) times daily. [facility] prednisoLON E acetate (PRED FORTE) 1 % ophthalmic suspension drops 2020-02 00:00: 00 Yes [id number] 1[drp] Place 1 Drop in right eye 4 (four) times daily. [facility] prednisoLON E acetate (PRED FORTE) 1 % ophthalmic suspension drops 2020-02 00:00: 00 Yes [id number] 1[drp] Place 1 Drop in right eye 4 (four) times daily. [facility] prednisoLON E acetate (PRED FORTE) 1 % ophthalmic suspension drops 2020-02 00:00: 00 Yes [id number] 1[drp] Place 1 Drop in right eye 4 (four) times daily. [facility] valACYclovi r 1 gram tablet 2020-02 00:00: 00 Yes [id number] 1g Take 1 tablet by mouth 3 (three) times daily. [facility] valACYclovi r 1 gram tablet 2020-02 00:00: 00 Yes [id number] 1g Take 1 tablet by mouth 3 (three) times daily. [facility] valACYclovi r 1 gram tablet 2020-02 00:00: 00 Yes [id number] 1g Take 1 tablet by mouth 3 (three) times daily. [facility] moxifloxaci n (VIGAMOX) 0.5 % ophthalmic drops 2020-02 00:00: 00 12-19 05:59 :00 No [id number] 1[drp] Place 1 Drop in right eye every 1 (one) hour for 5 days. [facility] cyclopentol ate (CYCLOGYL) 2 % ophthalmic drops 2020-02 00:00: 00 12-19 05:59 :00 No [id number] 1[drp] Place 1 Drop in right eye 2 (two) times daily for 5 days. [facility] polymyxin B sulf-trimet hoprim 10,000 unit- 1 mg/mL ophthalmic drops 2020-02 00:00: 00 Yes [id number] 1[drp] Place 1 Drop in right eye every 4 (four) hours. [facility] acetaminoph en-codeine 300-30 mg tablet 2020-02 00:00: 00 Yes [id number] 1{tbl} Take 1 tablet by mouth every 6 (six) hours as needed for Pain (scale 4-6). Indication s: acute pain [facility] neomycin-po lymyxin-dex amethasone (MAXITROL) 3.5 mg/g-10,000 unit/g-0.1 % ophthalmic ointment 2020-02 00:00: 00 Yes [id number] .5[in_u s] Place 0.5 Inches in right eye 4 (four) times daily. [facility] polymyxin B sulf-trimet hoprim 10,000 unit- 1 mg/mL ophthalmic drops 2020-02 00:00: 00 Yes [id number] 1[drp] Place 1 Drop in right eye every 4 (four) hours. [facility] acetaminoph en-codeine 300-30 mg tablet 2020-02 00:00: 00 Yes [id number] 1{tbl} Take 1 tablet by mouth every 6 (six) hours as needed for Pain (scale 4-6). Indication s: acute pain [facility] neomycin-po lymyxin-dex amethasone (MAXITROL) 3.5 mg/g-10,000 unit/g-0.1 % ophthalmic ointment 2020-02 00:00: 00 Yes [id number] .5[in_u s] Place 0.5 Inches in right eye 4 (four) times daily. [facility] polymyxin B sulf-trimet hoprim 10,000 unit- 1 mg/mL ophthalmic drops 2020-02 00:00: 00 Yes [id number] 1[drp] Place 1 Drop in right eye every 4 (four) hours. [facility] acetaminoph en-codeine 300-30 mg tablet 2020-02 00:00: 00 Yes [id number] 1{tbl} Take 1 tablet by mouth every 6 (six) hours as needed for Pain (scale 4-6). Indication s: acute pain [facility] neomycin-po lymyxin-dex amethasone (MAXITROL) 3.5 mg/g-10,000 unit/g-0.1 % ophthalmic ointment 2020-02 00:00: 00 Yes [id number] .5[in_u s] Place 0.5 Inches in right eye 4 (four) times daily. [facility] ibuprofen 800 mg tablet 07-24 00:00: 00 Yes [id number] 800mg Take 1 tablet by mouth every 8 (eight) hours as needed for Pain (scale 4-6). [facility] ondansetron (ZOFRAN ODT) 4 mg disintegrat ing tablet 07-24 00:00: 00 Yes [id number] 4mg Take 1 tablet by mouth every 8 (eight) hours as needed for Nausea and Vomiting (N/V). [facility] ibuprofen 800 mg tablet 07-24 00:00: 00 Yes [id number] 800mg Take 1 tablet by mouth every 8 (eight) hours as needed for Pain (scale 4-6). [facility] ondansetron (ZOFRAN ODT) 4 mg disintegrat ing tablet 07-24 00:00: 00 Yes [id number] 4mg Take 1 tablet by mouth every 8 (eight) hours as needed for Nausea and Vomiting (N/V). [facility] ibuprofen 800 mg tablet 07-24 00:00: 00 Yes [id number] 800mg Take 1 tablet by mouth every 8 (eight) hours as needed for Pain (scale 4-6). [facility] ondansetron (ZOFRAN ODT) 4 mg disintegrat ing tablet 07-24 00:00: 00 Yes [id number] 4mg Take 1 tablet by mouth every 8 (eight) hours as needed for Nausea and Vomiting (N/V). [facility] benzonatate 100 mg capsule 04-14 00:00: 00 Yes [id number] 100mg Take 1 capsule by mouth 3 (three) times daily as needed for Cough. [facility] benzonatate 100 mg capsule 04-14 00:00: 00 Yes [id number] 100mg Take 1 capsule by mouth 3 (three) times daily as needed for Cough. [facility] benzonatate 100 mg capsule 04-14 00:00: 00 Yes [id number] 100mg Take 1 capsule by mouth 3 (three) times daily as needed for Cough. [facility] phenazopyri dine 200 mg tablet 04-16 00:00: 00 Yes 200mg Take 1 tablet by mouth every 8 (eight) hours as needed (bladder spasms). [facility] proMETHazin e 25 mg tablet 04-16 00:00: 00 Yes 25mg Take 1 tablet by mouth every 6 (six) hours as needed for Nausea and Vomiting (N/V). [facility] traMADOL 50 mg tablet 04-16 00:00: 00 Yes 50mg Take 1 tablet by mouth every 6 (six) hours as needed (pain). [facility] phenazopyri dine 200 mg tablet 04-16 00:00: 00 Yes 200mg Take 1 tablet by mouth every 8 (eight) hours as needed (bladder spasms). [facility] proMETHazin e 25 mg tablet 04-16 00:00: 00 Yes 25mg Take 1 tablet by mouth every 6 (six) hours as needed for Nausea and Vomiting (N/V). [facility] traMADOL 50 mg tablet 04-16 00:00: 00 Yes 50mg Take 1 tablet by mouth every 6 (six) hours as needed (pain). [facility] phenazopyri dine 200 mg tablet 04-16 00:00: 00 Yes 200mg Take 1 tablet by mouth every 8 (eight) hours as needed (bladder spasms). [facility] proMETHazin e 25 mg tablet 04-16 00:00: 00 Yes 25mg Take 1 tablet by mouth every 6 (six) hours as needed for Nausea and Vomiting (N/V). [facility] traMADOL 50 mg tablet 04-16 00:00: 00 Yes 50mg Take 1 tablet by mouth every 6 (six) hours as needed (pain). [facility] Vital Signs Vital Name Observation Time Observation Value Comments S sunita Systolic blood pressure 2022-02-27 11:00:00 164 mm[Hg] [facility] Diastolic blood pressure 2022-02-27 11:00:00 105 mm[Hg] [facility] Heart rate 2022-02-27 11:00:00 78 /min [facility] Body temperature 2022-02-27 11:00:00 36.89 Kari [facility] Respiratory rate 2022-02-27 11:00:00 18 /min [facility] Body height 2022-02-27 11:00:00 144.8 cm [facility] Body weight 2022-02-27 11:00:00 77.111 kg [facility] BMI 2022-02-27 11:00:00 36.79 kg/m2 [facility] Oxygen saturation in Arterial blood by Pulse oximetry 2022-02-27 11:00:00 96 /min [facility] Systolic blood pressure 2021-10-02 23:12:00 142 mm[Hg] [facility] Diastolic blood pressure 2021-10-02 23:12:00 91 mm[Hg] [facility] Heart rate 2021-10-02 23:12:00 75 /min [facility] Body temperature 2021-10-02 23:12:00 37.44 Kari [facility] Respiratory rate 2021-10-02 23:12:00 15 /min [facility] Body height 2021-10-02 23:12:00 144.8 cm [facility] Body weight 2021-10-02 23:12:00 76.204 kg [facility] BMI 2021-10-02 23:12:00 36.35 kg/m2 [facility] Oxygen saturation in Arterial blood by Pulse oximetry 2021-10-02 23:12:00 98 /min [facility] Body weight 2020-12-16 20:57:00 74.844 kg [facility] BMI 2020-12-16 20:57:00 35.71 kg/m2 [facility] Procedures Procedure Date / Time Performed Performing Clinicia n Source [facility] CONSENT FOR FREE TREATMENT FORM 2022-05-31 13:03:36 Doctor Unassigned[place] [facility] POCT TEST 2022-02-27 11:18:00 Jennifer Quezada [facility] RAPID INFLUENZA A/B 2022-02-27 11:17:00 Jennifer Quezada [facility] COVID-19 (ID NOW RAPID TESTING) 2022-02-27 11:17:00 Kyara Quezada [facility] CONSENT/REFUSAL FOR DIAGNOSIS AND TREATMENT 2022-02-27 10:48:36 Doctor Unassigned[facility] [place] [facility] [facility] XR WRIST 3+ VW RIGHT 2021-10-02 23:30:22 Payam Padilla [facility] NOTICE OF PRIVACY PRACTICES 2021-10-02 23:06:12 Doctor Unassigned[facility] [place] [facility] [facility] CONSENT/REFUSAL FOR DIAGNOSIS AND TREATMENT 2021-10-02 23:05:51 Doctor Unassigned[facility] [place] [facility] [facility] CONSENT TO TREAT AND DIAGNOSE FORM 2020-12-21 19:22:14 Doctor Unassigned[facility] [place] [facility] [facility] Encounters Start Date/Time End Date/Time Encounter Type Admission Type Attending [facility] Facility Care Department Encounter ID Source 2022-05-31 00:00:00 2022-05-31 00:00:[address] [facility] [id number] [facility] 2022-05-31 00:00:00 2022-05-31 00:00:00 Orders Only Doctor [place]assigned[facility] [place] [facility] [facility] [id number] [id number] [facility] 2022-02-27 05:21:00 2022-02-27 06:09:00 Emergency X QUEZADAKYARA [facility] ERT [id number] [facility] 2022-02-27 05:21:00 2022-02-27 06:09:00 Emergency Kyara Quezada [facility] [id number] [id number] [facility] 2021-12-03 00:00:00 2021-12-03 00:00:[address] [facility] [id number] [facility] 2021-12-03 00:00:00 2021-12-03 00:00:00 Letter (Out) Doctor [place]assigned[facility] [place] [facility] [facility] [id number] [id number] [id number] [facility] 2021-12-03 00:00:00 2021-12-03 00:00:00 Letter (Out) Doctor [place]assigned[facility] [place] [facility] [facility] [id number] [id number] [id number] [facility] 2021-11-03 00:00:00 2021-11-03 00:00:00 Outpatient FLORECITA KRAUS [facility] [id number] [facility] 2021-10-05 00:00:00 2021-10-05 00:00:[address] [facility] [id number] [facility] 2021-10-02 18:13:00 2021-10-02 18:53:00 Emergency CALLIE CONDE [facility] ERT [id number] [facility] 2021-10-02 18:13:00 2021-10-02 18:53:00 Emergency Callie Padilla [facility] [id number] [id number] [id number] [facility] 2021-10-02 00:00:00 2021-10-02 00:00:00 Orders Only Doctor [place]assigned[facility] [place] [facility] [facility] [id number] [id number] [id number] [id number] [facility] 2021-03-19 00:00:00 2021-03-19 00:00:[address] [facility] [id number] [facility] 2021-02-15 00:00:00 2021-02-15 00:00:00 Outpatient [facility] [id number] BSD- 12 [facility] 2021-02-09 00:00:00 2021-02-09 00:00:00 Outpatient [facility] [id number] BSD- 04 [facility] 2020-12-21 00:00:00 2020-12-21 00:00:00 Orders Only Doctor [place]assigned[facility] [place] [facility] [facility] [id number] [id number] 4.2.7.2.686 [id number] [facility] 2020-12-19 00:00:00 2020-12-19 00:00:00 [facility]phone [facility] [id number] [id number] [id number] [id number] [facility] 2020-12-16 14:45:00 2020-12-16 15:24:10 Outpatient R AXEL MORRISON [facility] [id number] [facility] 2020-12-16 14:34:25 2020-12-16 15:24:10 [facility] 1.2840.114 350.1.13.10 4.2.7.2.686 [id number] [facility] 2020-12-16 00:00:00 2020-12-16 00:00:00 Orders Only Doctor Unassigned, [place] [facility] [facility] 1.20.114 350.1.13.10 4.2.7.2.686 [id number] [facility] 2020-12-15 00:00:00 2020-12-15 00:00:00 Telephone Elayne Warren [facility] 1.2840.114 350.1.13.10 4.2.7.2.686 [id number] [facility] 2020-12-14 09:14:00 2020-12-14 13:00:00 Emergency X TARA VELASQUEZ [facility] ERT [id number] [facility] 2020-12-14 09:14:00 2020-12-14 13:00:00 Emergency Tara Velasquez [facility] 1.2840.114 350.1.13.10 4.2.7.2.686 [id number] [facility] 2020-12-14 09:14:00 2020-12-14 13:00:00 Emergency X TARA VELASQUEZ [facility] ERT [id number] [facility] 2020-12-12 23:23:00 2020-12-13 01:05:00 Emergency X JOSÉ HARMAN [facility] ERT [id number] [facility] 2020-12-12 23:23:00 2020-12-13 01:05:00 Emergency X JOSÉ HARMAN [facility] ERT [id number] [facility] 2020-12-13 00:00:00 2020-12-13 00:00:00 Telephone Keenan Gallardo [facility] 1.2.840.114 350.1.13.10 4.2.7.2.686 [id number] [facility] 2020-12-12 23:23:00 2020-12-12 23:23:00 Emergency José Harman [facility] 1.2.840.114 350.1.13.10 4.2.7.2.686 [id number] [facility] 2020-12-12 11:51:00 2020-12-12 12:38:00 Emergency X ELLEN CHEN [facility] ERT [id number] [facility] 2020-12-12 11:51:00 2020-12-12 12:38:00 Emergency Eulogio Chencamryn Arnett [facility] 1.2.840.114 350.1.13.10 4.2.7.2.686 [id number] [facility] 2020-12-12 11:51:00 2020-12-12 12:38:00 Emergency X TIM CHENE [facility] ERT [id number] [facility] 2020-07-24 19:59:00 2020-07-24 20:35:00 Emergency Maia Shrestha [facility] 1.2.840.114 350.1.13.10 4.2.7.2.686 [id number] [facility] 2020-07-24 19:46:00 2020-07-24 19:46:00 Emergency X [facility] ERT [id number] [facility] 2020-07-24 00:00:00 2020-07-24 00:00:00 Orders Only Doctor Unassigned[facility] [place] [facility] 1.2.840.114 350.1.13.10 4.2.7.2.686 [id number] [facility] 2019-09-02 19:45:09 2019-09-02 23:40:00 Emergency Maia Shrestha [facility] 1.2.840.114 350.1.13.10 4.2.7.2.686 [id number] 2019-09-02 19:45:09 2019-09-02 23:40:00 Emergency Maia Shrestha Calvin Brewsterian Iveth [facility] 1.2.840.114 350.1.13.10 4.2.7.2.686 [id number] [facility] 2019-09-02 19:34:00 2019-09-02 19:34:00 Emergency X [facility] ERT [id number] [facility] 2019-09-02 00:00:00 2019-09-02 00:00:00 Orders Only Doctor Unassigned[facility] [place] [facility] [place] [facility] 1.2.840.114 350.1.13.10 4.2.7.2.686 [id number] [facility] 2019-09-02 00:00:00 2019-09-02 00:00:00 Orders Only Doctor Unassigned, [place] [facility] 1.2.840.114 350.1.13.10 4.2.7.2.686 [id number] 2019-04-15 07:28:53 2019-04-15 08:44:00 Emergency Kyara Quezada [facility] 1.2.840.114 350.1.13.10 4.2.7.2.686 [id number] [facility] 2019-04-15 07:28:53 2019-04-15 08:44:00 [facility] 1.2.840.114 350.1.13.10 4.2.7.2.686 [id number] 2019-04-15 07:16:00 2019-04-15 07:16:00 Emergency X KYARA QUEZADA [facility] [id number] [facility] Results Test Description Test Time Test Comments Results Result Co mments Source [facility]
--- NOTE | 2023-01-29 06:23 | EDPHYS ---
Physician Documentation [facility] Priti Name: Monday Mackenzie Age: 37 yrs Sex: Female : 1985 Arrival Date: 01/29/2023 Time: 03:28 Bed 14 Private MD: ED Physician Shoaib Jasso HPI: 01/29 04:24 This 37 yrs old Female presents to ER via Ambulatory with complaints of Flu ci Symptoms, Fever, Chest Congestion. 04:24 . ci 04:24 Patient presents with flu like symptoms that began yesterday morning. Endorses ci generalized body aches, fever, dry cough, sore throat, congestion. Denies SOB, CP. Took tylenol 3hrs ago with no improvement. No known sick contacts. 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 Flu vaccine is not up to date. - Social history:: Smoking status: Patient denies any tobacco usage or history of. ROS: 04:24 Constitutional: Positive for body aches, chills, fatigue, fever, ci 04:24 ENT: Positive for nasal discharge, rhinorrhea, sinus congestion, 04:24 Neuro: Positive for headache, Negative for altered mental status, dizziness, seizure activity, weakness, Exam: 04:24 Constitutional: This is a well developed, well nourished patient who is awake, alert, ci and in no acute distress. Head/Face: Normocephalic, atraumatic. Eyes: Pupils equal round and reactive to light, extra-ocular motions intact. Lids and lashes normal. Conjunctiva and sclera are non-icteric and not injected. Cornea within normal limits. Periorbital areas with no swelling, redness, or edema. ENT: Nares patent. No nasal discharge, no septal abnormalities noted. Tympanic membranes are normal and external auditory canals are clear. Oropharynx with no redness, swelling, or masses, exudates, or evidence of obstruction, uvula midline. Mucous membranes moist. Neck: Trachea midline, no thyromegaly or masses palpated, and no cervical lymphadenopathy. Supple, full range of motion without nuchal rigidity, or vertebral point tenderness. No Meningismus. Chest/axilla: Normal chest wall appearance and motion. Nontender with no deformity. No lesions are appreciated. Cardiovascular: Slightly tachycardiac but regular with a normal S1 and S2. No gallops, murmurs, or rubs. No JVD. No pulse deficits. Respiratory: Lungs have equal breath sounds bilaterally, clear to auscultation and percussion. No rales, rhonchi or wheezes noted. No increased work of breathing, no retractions or nasal flaring. Abdomen/GI: Soft, non-tender, with normal bowel sounds. No distension or tympany. No guarding or rebound. No evidence of tenderness throughout. Back: No spinal tenderness. No costovertebral tenderness. Full range of motion. Skin: Warm, dry with normal turgor. Normal color with no rashes, no lesions, and no evidence of cellulitis. MS/ Extremity: Pulses equal, no cyanosis. Neurovascular intact. Full, normal range of motion. Neuro: Awake and alert, GCS 15, oriented to person, place, time, and situation. Cranial nerves II-XII grossly intact. Motor strength 5/5 in all extremities. Sensory grossly intact. Cerebellar exam normal. Normal gait. Psych: Awake, alert, with orientation to person, place and time. Behavior, mood, and affect are within normal limits. Vital Signs: 03:45 BP 145 / 97; Pulse 119; Resp 20; Temp 100.9; Pulse Ox 99% ; Weight 70.76 kg; Height 4 vc1 ft. 9 in. ; Pain 10/10; 03:49 BP 145 / 97; Pulse 104; Resp 12; Pulse Ox 98% ; Pain 10/10; tm6 03:49 Temp 100.9; tm6 04:51 BP 139 / 78; Pulse 107; Resp 17; Temp 99.7(O); Pulse Ox 97% on R/A; Pain 10/10; tm6 05:31 BP 133 / 83; Pulse 93; Resp 20; Pulse Ox 97% on R/A; tm6 06:17 BP 115 / 82; Pulse 86; Pulse Ox 98% on R/A; tm6 06:38 BP 115 / 82; Pulse 95; Resp 16; Pulse Ox 96% ; tm6 03:45 Body Mass Index 33.76 (70.76 kg, 144.78 cm) vc1 03:45 Pain Scale: Adult vc1 03:49 Pain Scale: Adult tm6 04:51 Pain Scale: Adult tm6 MDM: 03:47 Patient medically screened. ci 04:24 Differential diagnosis: viral Infection, bacterial infection, URI, bronchitis, ci pneumonia. Data reviewed: vital signs, nurses notes, lab test result(s), Flu:. Care significantly affected by the following chronic conditions: Diabetes, Hypertension. Awaiting: labs results, X-ray results. ED course: Patient presents for flu-like symptoms. Nontoxic appearing. VSS except slightly tachycardiac and febrile. Denies CP. No rigidity or meningeal sign. Lows suspicion for sepsis, symptoms likely due to viral illness. 01/29 03:49 Order name: COVID-19 SARS RT PCR; Complete Time: 04:55 ci 01/29 03:49 Order name: Flu; Complete Time: 04:55 ci 01/29 04:55 Interpretation: FLUA FLU A ----- POSITIVE for FLU A protein antigen. ci 01/29 03:49 Order name: RSV; Complete Time: 04:55 ci 01/29 03:49 Order name: Strep; Complete Time: 04:55 ci 01/29 04:44 Order name: Throat Culture EDMS 01/29 03:49 Order name: Chest Single View XRAY; Complete Time: 06:24 ci 01/29 06:24 Interpretation: No acute disease. ci Administered Medications: 04:13 Drug: Ketorolac IM 30 mg IM once Route: IM; Site: right deltoid; tm6 04:14 Not Given (per MDd): [id number] mg PO once tm6 04:59 Drug: Acetaminophen PO 1000 mg PO once Route: PO; tm6 Disposition Summary: 01/29/23 06:22 Discharge Ordered Notes: Location: Home ci Condition: Stable ci Diagnosis - Influenza due to identified novel influenza A virus ci Followup: ci - With: Private Physician - When: 2 - 3 days - Reason: Recheck today's complaints, Re-evaluation by your physician Discharge Instructions: - Discharge Summary Sheet ci - Influenza, Adult ci Forms: - Medication Reconciliation Form ci - Thank You Letter ci - Antibiotic Education ci - Prescription Opioid Use ci - Patient Portal Instructions ci - Leadership Thank You Letter ci Prescriptions: - Tamiflu 75 mg Oral capsule - take 1 tablet ORAL route every 12 hours for 5 days; 10 tablet; Refills: 0, ci Product Selection Permitted Signatures: Dispatcher [employer] Melissa Hendricks RN RN vc1 IheonunekwuShoaib Tawney RN RN tm6
--- NOTE | 2023-01-29 06:23 | ER ---
Nurse's Notes [facility] Priti Name: Monday Mackenzie Age: 37 yrs Sex: Female : 1985 Arrival Date: 01/29/2023 Time: 03:28 Bed 14 Private MD: Diagnosis: Influenza due to identified novel influenza A virus Presentation: 01/29 03:45 Chief complaint: Patient states: chest and head congestion since yesterday morning. vc1 Pain in shoulders, back and ribs with runny nose. Coronavirus screen: Vaccine status: Patient reports being unvaccinated. Client denies travel out of the [place] in the last 14 days. At this time, the client does not indicate any symptoms associated with coronavirus-19. Ebola Screen: Patient negative for fever greater than or equal to 101.5 degrees Fahrenheit, and additional compatible Ebola Virus Disease symptoms Patient denies exposure to infectious person. Patient denies travel to an Ebola-affected area in the 21 days before illness onset. No symptoms or risks identified at this time. Initial Sepsis Screen: Does the patient meet any 2 criteria? HR > 90 bpm. No. Patient's initial sepsis screen is negative. Does the patient have a suspected source of infection? Yes: Productive cough/pneumonia. Risk Assessment: Do you want to hurt yourself or someone else? Patient reports no desire to harm self or others. Onset of symptoms was January 28, 2023. 03:45 Method Of Arrival: Ambulatory vc1 03:45 Acuity: ANTONETTE 3 vc1 Triage Assessment: 03:52 General: Appears in no apparent distress. uncomfortable, ill, Behavior is cooperative, vc1 crying. Pain: Complains of pain in chest, head, back, shoulders and ribs Pain does not radiate. Pain currently is 10 out of 10 on a pain scale. Quality of pain is described as sharp. EENT: Eyes are tearing on inner aspect of conjuctiva of right eye and inner aspect of conjunctiva of left eye Nares with drainage noted. Neuro: Level of Consciousness is awake, alert, obeys commands, Oriented to person, place, time, situation, Appropriate for age Reports headache. Cardiovascular: No deficits noted. Respiratory: Airway is patent Respiratory effort is even, unlabored, Respiratory pattern is regular, symmetrical. Respiratory: Reports cough that is pain with cough Pain is 10 out of 10 on a pain scale. GI: No deficits noted. No signs and/or symptoms were reported involving the gastrointestinal system. : No deficits noted. No signs and/or symptoms were reported regarding the genitourinary system. Derm: No deficits noted. No signs and/or symptoms reported regarding the dermatologic system. Musculoskeletal: No deficits noted. No signs and/or symptoms reported regarding the musculoskeletal system. 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 Flu vaccine is not up to date. - Social history:: Smoking status: Patient denies any tobacco usage or history of. Screenin:[facility] ED Fall Risk Assessment (Adult) History of falling in the last 3 months, vc1 including since admission No falls in past 3 months (0 pts) Confusion or Disorientation No (0 pts) Intoxicated or Sedated No (0 pts) Impaired Gait No (0 pts) Mobility Assist Device Used No (0 pt) Altered Elimination No (0 pt) Score/Fall Risk Level 0 - 2 = Low Risk Oriented to surroundings, Maintained a safe environment, Educated pt \T\ family on fall prevention, incl call for assistance when getting out of bed. Abuse screen: Denies threats or abuse. Nutritional screening: No deficits noted. Tuberculosis screening: No symptoms or risk factors identified. Assessment: 03:49 General: Appears distressed, Behavior is calm, cooperative. Pain: Complains of pain in tm6 back and chest Pain currently is 10 out of 10 on a pain scale. Quality of pain is described as aching, Pain began 1 day ago. Neuro: Level of Consciousness is awake, alert, obeys commands, Oriented to person, place, time, situation. Cardiovascular: Capillary refill < 3 seconds Patient's skin is warm and dry. Rhythm is sinus tachycardia. Respiratory: Airway is patent Respiratory effort is even, unlabored, Respiratory pattern is regular, symmetrical, Parent/caregiver reports the patient having cough that is non-productive. GI: Abdomen is flat, non-distended. : No signs and/or symptoms were reported regarding the genitourinary system. EENT: Eyes watery. Throat has enlarged tonsils Reports difficulty swallowing since yesterday nasal discharge that is watery pain when swallowing. Derm: No signs and/or symptoms reported regarding the dermatologic system. Musculoskeletal: Reports pain in back and chest pain when coughing in chest, back, and ribs. 04:53 Reassessment: Patient and/or family updated on plan of care and expected duration. Pain tm6 level reassessed. Patient is alert, oriented x 3, equal unlabored respirations, skin warm/dry/pink. patient reports headache pain has increased Patient states symptoms have not improved. 05:31 Reassessment: Patient is alert, oriented x 3, equal unlabored respirations, skin tm6 warm/dry/pink. Patient states feeling better. 06:18 Reassessment: Patient and/or family updated on plan of care and expected duration. Pain tm6 level reassessed. Patient is alert, oriented x 3, equal unlabored respirations, skin warm/dry/pink. Patient states symptoms have not improved. Vital Signs: 03:45 BP 145 / 97; Pulse 119; Resp 20; Temp 100.9; Pulse Ox 99% ; Weight 70.76 kg; Height 4 vc1 ft. 9 in. ; Pain 10/10; 03:49 BP 145 / 97; Pulse 104; Resp 12; Pulse Ox 98% ; Pain 10/10; tm6 03:49 Temp 100.9; tm6 04:51 BP 139 / 78; Pulse 107; Resp 17; Temp 99.7(O); Pulse Ox 97% on R/A; Pain 10/10; tm6 05:31 BP 133 / 83; Pulse 93; Resp 20; Pulse Ox 97% on R/A; tm6 06:17 BP 115 / 82; Pulse 86; Pulse Ox 98% on R/A; tm6 06:38 BP 115 / 82; Pulse 95; Resp 16; Pulse Ox 96% ; tm6 03:45 Body Mass Index 33.76 (70.76 kg, 144.78 cm) vc1 03:45 Pain Scale: Adult vc1 03:49 Pain Scale: Adult tm6 04:51 Pain Scale: Adult tm6 ED Course: 03:32 Patient arrived in ED. gm2 03:47 Triage completed. vc1 03:47 Shoaib Jasso is Attending Physician. ci 03:47 Shaheen Boudreaux, RN is Primary Nurse. tm6 03:49 Provided Education on: plan of care. shelter monitor on. Door closed. Noise minimized. tm6 Warm blanket given. 03:49 No provider procedures requiring assistance completed. tm6 03:50 Arm band placed on left wrist. vc1 03:51 Patient has correct armband on for positive identification. Bed in low position. Call vc1 light in reach. Pulse ox on. NIBP on. 04:02 COVID-19 SARS RT PCR Sent. tm6 04:02 Flu Sent. tm6 04:02 RSV Sent. tm6 04:02 Strep Sent. tm6 04:33 Chest Single View XRAY In Process Unspecified. EDMS 06:39 Patient did not have IV access during this emergency room visit. tm6 Administered Medications: 04:13 Drug: Ketorolac IM 30 mg IM once Route: IM; Site: right deltoid; tm6 04:14 Not Given (per MDd): [id number] mg PO once tm6 04:59 Drug: Acetaminophen PO 1000 mg PO once Route: PO; tm6 Medication: 03:51 VIS not applicable for this client. vc1 Outcome: 06:22 Discharge ordered by MD. ci 06:39 Discharged to home ambulatory, tm6 06:39 Condition: stable 06:39 Discharge instructions given to patient, Instructed on discharge instructions, medication usage, Demonstrated understanding of instructions, follow-up care, medications, Prescriptions given X 1, 06:40 Patient left the ED. tm6 Signatures: Dispatcher [employer] [facility] Melissa Kwon, RN RN vc1 Shoaib Jasso Ginger 2 Shaheen Boudreaux, RN RN tm6
[2023-01-29 06:54] VITALS: BP 115/82; TEMP 99.7; O2SAT 96
--- NOTE | 2023-01-30 10:53 | RAD REPORT ---
EXAM DESCRIPTION: RAD - Chest Single View - 01/29/2023 4:32 am CLINICAL HISTORY: CONGESTION COMPARISON: None TECHNIQUE: Single AP view of the chest. FINDINGS: Lung volumes diminished. Cardiac silhouette is normal in size. No pneumothorax. No large pleural effusion. No focal consolidation. No acute bony finding. IMPRESSION: No evidence of acute cardiopulmonary disease. Electronically signed by: Marie Hussein MD 01/29/2023 04:53 AM [employer] Due to temporary technical issues with the PACS/Fluency reporting system, reports are being signed by the in house radiologists without review as a courtesy to insure prompt reporting. The interpreting radiologist is fully responsible for the content of the report.
== END ==
LOC: ER 03:28
DX: J10.1 Influenza due to other identified influenza virus with other respiratory manifestations (principal); Z11.52 Encounter for screening for COVID-19
CPT/HCPCS: 71045; 87070; 87081; 87635; 87804; 87807; 96372; 99285

== ENCOUNTER 2024-01-10 17:53 | Emergency (ER) | payer OTHER, SELFPAY ==
--- OUTSIDE RECORDS SUMMARY | 2024-01-10 17:56 | XMS REPORT | Continuity of Care Document ---
Author Name Unknown Address [address] [facility] [place] [address] [facility] ll[facility]ct Address [address] [facility] [address] [place] [address] Care Team Providers Care Ammunition Supervisor Name Role Phone [facility] Primary Care Physician FARIDEH Arnold Attending Clinician Unavailable ETHAN MOBLEY Attending Clinician Unavailab MISAEL Summers Attending Clinician Unavailable LAB90 Attending Clinician Unavailable YONATAN BETANCOURT Attending Clinician Unavailable ANGEL WILSON Attending Clinician UnavailSTEWART Spence Attending Clinician Unavailable BOB BUCKLEY Attending Clinician Unavailable BOB BUCKLEY Attending Clinician Unavailable Bob Buckley MD Attending Clinician [phone] Doctor Unassigned, [place] Attending Clinician U KYARA Sanchez Attending Clinician Unavailable Kyara Quezada DO Attending Clinician [phone] FLORECITA MENDOZA Attending Clinician Unavailable CALLIE PADILLA Attending Clinician Unavailab Callie Montgomery DO Attending Clinician [phone] Axel Morrison MD Attending Clinician [phone] AXEL MORRISON Attending Clinician Unavailable Kelvin ARMENDARIZ, Elayne Attending Clinician [phone] TARA VELASQUEZ Attending Clinician UnavailTara Iverson Attending Clinician [phone] JOSÉ HARMAN Attending Clinician Unavailable Keenan Gallardo MD Attending Clinician [phone] José Harman MD Attending Clinician [phone] ELLEN CHEN Attending Clinician Unavailable Ellen Chen APN Attending Clinician [phone] Maia Rosario Attending Clinician [phone] Jasson Brewster MD Attending Clinician [phone] BOB BUCKLEY Admitting Clinician Unavailable CALLIE PADILLA Admitting Clinician Unavailab le OPHTHAMOLOGY Admitting Clinician Unavailable Jasson Brewster MD Admitting Clinician [phone] Payers Payer Name Policy Type Policy Number Effective Date Expirati on Date Source AEYULI LATHAM [employer] 94 ON 9 [id number] 2023 00:00:00 RADHA Candelaria/ ANGELIA SANCHEZ [id number] 2023 00:00:00 MEDICAID PENDING PENDING 2021 00:00:00 Problems Condition Name Condition Details Condition Category Status Onset Date Resolution Date Last Treatment Date Treating Clinician Comments Source Immunodefi ciency due to poorly controlled type 2 diabetes (CMS/HCC) (multi HCC) Immunodefi ciency due to poorly controlled type 2 diabetes (CMS/HCC) (multi HCC) Disease Active 2023-02 0- 00:00: 00 Angelia hutchinson Type 2 diabetes mellitus with hyperglyce duke, without long-term current use of insulin (multi HCC) Type 2 diabetes mellitus with hyperglyce duke, without long-term current use of insulin (multi HCC) Disease Active 8- 00:00: 00 Angelia hutchinson Type 2 diabetes mellitus with hyperlipid emia (multi HCC) Type 2 diabetes mellitus with hyperlipid emia (multi HCC) Disease Active 09-18 00:00: 00 Angelia Navarroa jasper Encounter for screening for human papillomav irus (HPV) Encounter for screening for human papillomav irus (HPV) Disease Active 09-18 00:00: 00 Angelia Sanchez - Externa jasper Type 2 diabetes mellitus with morbid obesity (multi HCC) Type 2 diabetes mellitus with morbid obesity (multi HCC) Disease Active 09-18 00:00: 00 Angelia Smith Externa jasper Primary hypertensi on Primary hypertensi on Disease Active 09-18 00:00: 00 Angelia Navarroa jasper Family history of thyroid disease Family history of thyroid disease Disease Active 09-18 00:00: 00 Angelia Smith Externa jasper Lump or mass in breast Lump or mass in breast Disease Active 11-05 00:00: 00 [facility] Abnormal uterine bleeding (AUB) Abnormal uterine bleeding (AUB) Disease Active 10-24 00:00: 00 [facility] Allergies, Adverse Reactions, Alerts Allergy Name Allergy Type Status Severity Reaction(s) Onset Date Inactive Date Treating Clinician Comments Source NO KNOWN ALLERGIE S Drug Class Active [facility] Social History Social Habit Start Date Stop Date Quantity Comments Source ASSERTION Not Angelia Sanchez - External History SDOH Alcohol Frequency [facility] History SDOH Alcohol Std Drinks [facility] History SDOH Alcohol Binge [facility] History of tobacco use Occasional tobacco smoker [facility] Tobacco use and exposure 2023-11-27 00:00:00 2023-11-27 00:00:00 Smokeless tobacco non-user Angelia Smith External Alcohol Comment 2023-09-19 00:00:00 2023-09-19 00:00:00 rarely Angelia Sanchez - External Sex 2022-11-10 17:51:37 2022-11-10 17:51:37 Female (finding) Angelia Smith External Exposure to SARS-CoV-2 (event) 2022-02-17 00:00:00 2022-02-27 05:05:[address] [facility] Alcohol intake 2022-02-27 00:00:00 2022-02-27 00:00:00 0 /d [facility] Alcoholic beverage intake 2022-02-27 00:00:00 2022-02-27 00:00:00 0 /d [facility] History of Social function 2021-03-19 00:00:00 2021-03-19 00:00:00 [facility] Tobacco Comment 2014-10-23 00:00:00 2014-10-23 00:00:[address] [facility] Sex assigned at 1985 00:00:00 1985 00:00:00 Angelia Sweeney Smoking Status Start Date Stop Date Source Never smoked tobacco Angelia Sweeney Occasional tobacco smoker 2014-11-05 00:00:00 [facility] Medications Ordered Medication Name Filled Medication Name Start Date Stop Date Current Medication? Ordering Clinician Indication Dosage Frequency Signature (SIG) Comments Components Source Fluconazole 150 MG oral Tablet 2023-02 10:43: 55 Yes 150mg Take 1 tablet (150 mg total) by mouth once for 1 dose. Angelia hutchinson Nitrofurant oin Monohyd Macro 100 MG oral Capsule 2023-02 00:00: 00 12-23 05:59 :00 Yes [id number] 100mg Q.5D Take 1 capsule (100 mg total) by mouth 2 times daily for 5 days. Angelia hutchinson Dulaglutide (Trulicity) 4.5 MG/0.5ML subcutaneou s Solution Pen-injecto r 2023-02 00:00: 00 Yes [id number] 4.5mg Q1W Inject 4.5 mg into the skin once a week. Angelia hutchinson Atorvastati n Calcium 20 MG oral Tablet 2023-02 14:26: 44 Yes 20mg Take 1 tablet (20 mg total) by mouth at bedtime. Angelia hutchinson Losartan Potassium (COZAAR) 50 MG oral Tablet 2023-02 14:26: 44 Yes 50mg Take 1 tablet (50 mg total) by mouth every morning. Angelia hutchinson glipiZIDE 10 MG oral Tablet 10-19 09:02: 46 10-19 00:00 :00 No See Admin Instructio ns PLEASE SEE ATTACHED FOR DETAILED DIRECTIONS . Angelia hutchinson Ferrous Sulfate (Iron High-Potenc y) 325 MG oral Tablet 10-19 09:02: 46 10-19 00:00 :00 No 325mg Q.5D 325 mg 2 times daily. Angelia hutchinson Atorvastati n Calcium 20 MG oral Tablet 10-19 08:36: 36 Yes 20mg Take 1 tablet (20 mg total) by mouth at bedtime. Angelia hutchinson Losartan Potassium (COZAAR) 50 MG oral Tablet 10-19 08:36: 36 Yes 50mg Take 1 tablet (50 mg total) by mouth every morning. Angelia hutchinson Metformin HCl ER, OSM, 1000 MG oral TABLET SR 24 HR 10-19 08:35: 30 10-19 00:00 :00 No 1000mg Take 1 tablet (1,000 mg total) by mouth in the morning and 1 tablet (1,000 mg total) in the evening. Take with meals. Angelia hutchinson glipiZIDE 10 MG oral Tablet 10-19 00:00: 00 Yes [id number] 10mg Take 1 tablet (10 mg total) by mouth in the morning and 1 tablet (10 mg total) in the evening. Take before meals. Angelia hutchinson Ferrous Sulfate (Iron High-Potenc y) 325 MG oral Tablet 10-19 00:00: 00 Yes 325mg QD Take 325 mg by mouth daily. Angelia hutchinson Metformin HCl ER 500 MG oral TABLET SR 24 HR 10-19 00:00: 00 Yes [id number] 1000mg Q.5D Take 2 tablets (1,000 mg total) by mouth 2 times daily. Angelia hutchinson Dulaglutide (Trulicity) 4.5 MG/0.5ML subcutaneou s Solution Pen-injecto r 10-19 00:00: 00 Yes [id number] 4.5mg Q1W Inject 4.5 mg into the skin once a week. Angelia hutchinson Blood Glucose Monitoring Suppl (Blood Glucose Monitor System) w/Device does not apply Kit 10-19 00:00: 00 Yes [id number] Please check blood sugars twice daily. Angelia hutchinson Glucose Blood in vitro Strip 10-19 00:00: 00 Yes [id number] 1{each} Q.5D 1 each by other route 2 times daily. Angelia hutchinson Lancets does not apply Misc 10-19 00:00: 00 Yes [id number] For twice daily glucose monitoring . Angelia hutchinson Metformin HCl ER 500 MG oral TABLET SR 24 HR 10-17 00:00: 00 10-19 00:00 :00 No Angelia hutchinson Ondansetron (ZOFRAN) 4 MG oral TABLET DISPERSIBLE 10-15 00:00: 00 Yes DISSOLVE 1 TABLET BY MOUTH EVERY 8 HOURS NEEDED FOR NAUSEA AND VOMITING Angelia hutchinson FENTanyl PF (SUBLIMAZE (PF)) injection 50 mcg 09-19 05:45: 00 09-19 04:47 :00 No 50ug 50 mcg, Slow IV Push, ONCE, 1 dose, On Mon09/20/23 at 0045, Routine [facility] methocarbam oL (ROBAXIN) injection 1,000 mg 09-19 05:30: 00 09-19 04:50 :00 No 1000mg 1,000 mg, Slow IV Push, Administer over 3-5 Minutes, ONCE, 1 dose, [facility]20[facility] 00[facility]ZOFRAN (PF)) injection 4 mg 09-19 04:45: 00 09-19 04:47 :00 No 4mg 4 mg, Slow IV Push, ONCE, 1 dose, [facility]09/19/23 [facility] 2345[facility] methocarbam [facility]L 500 mg tablet 09-19 00:00: 00 Yes [id number] 500mg Take 1 tablet by mouth every 6 (six) hours as needed for Pain (scale 7-10) (MUSCLE SPASM). [facility] ibuprofen 800 mg tablet 09-19 00:00: 00 Yes [id number] 800mg Take 1 tablet by mouth every 8 (eight) hours as needed for Pain (scale 4-6). [facility] Metformin HCl ER 500 MG oral TABLET SR 24 HR 09-18 10:16: 51 09-18 00:00 :00 No TAKE 2 TABLETS BY MOUTH TWICE DAILY BEFORE BREAKFAST AND BEFORE SUPPER Angelia hutchinson Metformin HCl ER, OSM, 1000 MG oral TABLET SR 24 HR 09-18 10:16: 48 Yes 1000mg Take 1 tablet (1,000 mg total) by mouth in the morning and 1 tablet (1,000 mg total) in the evening. Take with meals. Angelia hutchinson Ferrous Sulfate (Iron High-Potenc y) 325 MG oral Tablet 09-18 09:26: 37 Yes 325mg Q.5D 325 mg 2 times daily. Angelia hutchinson Atorvastati n Calcium 20 MG oral Tablet 09-18 09:24: 01 Yes 20mg Take 1 tablet (20 mg total) by mouth at bedtime. Angelia hutchinson glipiZIDE 10 MG oral Tablet 09-18 09:24: 01 Yes See Admin Instructio ns PLEASE SEE ATTACHED FOR DETAILED DIRECTIONS . Angelia hutchinson Losartan Potassium (COZAAR) 50 MG oral Tablet 09-18 09:24: 01 Yes 50mg Take 1 tablet (50 mg total) by mouth every morning. Angelia hutchinson Dulaglutide (Trulicity) 3 MG/0.5ML subcutaneou s Solution Pen-injecto r 09-18 00:00: 00 10-19 00:00 :00 No [id number] 3mg Q1W Inject 3 mg into the skin once a week. Angelia hutchinson ONDANSETRON 4 mg disintegrat ing tablet 08-30 00:00: 00 Yes [id number] DISSOLVE 1 TABLET BY MOUTH EVERY 8 HOURS NEEDED FOR NAUSEA AND VOMITING [facility] Gabapentin 300 MG oral Capsule 08-30 00:00: 00 Yes TAKE 2 CAPSULES BY MOUTH EVERYDAY AT BEDTIME Angelia hutchinson LOSARTAN 50 mg tablet 07-18 00:00: 00 Yes [id number] 50mg TAKE 1 TABLET BY MOUTH EVERY DAY IN THE MORNING [facility] ATORVASTATI N 20 mg tablet 07-18 00:00: 00 Yes [id number] 20mg TAKE 1 TABLET BY MOUTH EVERYDAY AT BEDTIME [facility] METFORMIN ER 500 mg 24 hr tablet 07-18 00:00: 00 Yes [id number] TAKE 2 TABLETS BY MOUTH TWICE DAILY BEFORE BREAKFAST AND BEFORE SUPPER [facility] predniSONE 5 mg tablet 11-04 00:00: 00 Yes [id number] 5mg Take 1 tablet by mouth in the morning. [facility] clobetasoL 0.05 % cream 11-04 00:00: 00 Yes [id number] Apply to area(s) 2 (two) times daily. [facility] Dulaglutide (Trulicity) 1.5 MG/0.5ML subcutaneou s Solution Pen-injecto r 11-04 00:00: 00 09-18 00:00 :00 No 1.5mg Q1W Inject 1.5 mg into the skin once a week. Angelia hutchinson glipiZIDE 10 mg tablet 10-06 00:00: 00 Yes [id number] 10mg Take 1 tablet by mouth 2 (two) times daily before breakfast and dinner. Monitor glucose ac bid, hold dose if glucose reading is less than 120 at any time while taking [facility] atorvastati n 20 mg tablet 419 00:00: 00 Yes [id number] 20mg Take 1 tablet by mouth at bedtime. [facility] semaglutide (OZEMPIC) 0.25 mg or 0.5 mg(2 mg/1.5 mL) PnIj 05-25 00:00: 00 Yes [id number] .5mg inject 0.5 mg under the skin weekly. [facility] ferrous sulfate 325 mg (65 mg iron) EC tablet 05-25 00:00: 00 Yes [id number] 325mg Take 1 tablet by mouth in the morning and 1 tablet at noon and 1 tablet in the evening. Take with meals. [facility] gabapentin 300 mg capsule 05-25 00:00: 00 Yes [id number] 600mg Take 2 capsules by mouth at bedtime. [facility] losartan 50 mg tablet 05-25 00:00: 00 Yes [id number] 50mg Take 1 tablet by mouth in the morning. [facility] metformin ER 500 mg 24 hr tablet 05-25 00:00: 00 Yes [id number] 1000mg Take 2 tablets by mouth 2 (two) times daily before breakfast and dinner. [facility] ondansetron (ZOFRAN ODT) 4 mg disintegrat ing tablet 05-25 00:00: 00 Yes [id number] 4mg Take 1 tablet by mouth every 8 (eight) hours as needed for Nausea and Vomiting (N/V). [facility] ibuprofen (IBU) tablet 600 mg 02-27 11:15: 00 02-27 11:19 :00 No 600mg 600 mg, Oral, ONCE, 1 dose, On 02/27/22 at 0515, HAFSA [facility] chlorphenir amine 4 mg tablet 02-27 00:00: 00 Yes [id number] 4mg Take 1 tablet by mouth every 6 (six) hours as needed for Allergies or Runny nose. [facility] levocetiriz ine (XYZAL) 5 mg tablet 02-27 00:00: 00 03-30 05:59 :00 No [id number] 5mg Take 1 tablet by mouth every evening for 30 days. [facility] ferrous sulfate 325 mg (65 mg iron) EC tablet 10-06 00:00: 00 Yes [id number] 325mg Take 1 tablet by mouth in the morning and 1 tablet at noon and 1 tablet in the evening. Take with meals. [facility] gabapentin 300 mg capsule 10-06 00:00: 00 Yes [id number] 600mg Take 2 capsules by mouth at bedtime. [facility] HYDROcodone -acetaminop hen (NORCO 5) 5-325 mg tablet 1 tablet 10-02 23:30: 00 10-02 23:17 :00 No 1{tbl} 1 tablet, Oral, ONCE, 1 dose, On 10/02/21 at 1830, HAFSA [facility] ondansetron (ZOFRAN ODT) 4 mg disintegrat ing tablet 07-15 00:00: 00 Yes [id number] 4mg Take 1 tablet by mouth every 8 (eight) hours as needed for Nausea and Vomiting (N/V). [facility] metformin ER 500 mg 24 hr tablet 07-15 00:00: 00 Yes [id number] 1000mg Take 2 tablets by mouth 2 (two) times daily before breakfast and dinner. [facility] losartan 50 mg tablet 07-15 00:00: 00 Yes [id number] 50mg Take 1 tablet by mouth daily. [facility] glipiZIDE 10 mg tablet 07-15 00:00: 00 Yes [id number] 10mg Take 1 tablet by mouth 2 (two) times daily before breakfast and dinner. [facility] gabapentin 300 mg capsule 07-15 00:00: 00 Yes [id number] 600mg Take 2 capsules by mouth at bedtime. [facility] ferrous sulfate 325 mg (65 mg iron) EC tablet 07-15 00:00: 00 Yes [id number] 325mg Take 1 tablet by mouth 3 (three) times daily with meals. [facility] atorvastati n 20 mg tablet 07-15 00:00: 00 Yes [id number] 20mg Take 1 tablet by mouth at bedtime. [facility] dulaglutide (TRULICITY) 1.5 mg/0.5 mL PnIj 03-19 00:00: 00 Yes [id number] 1.5mg inject 1.5 mg under the skin weekly. [facility] prednisoLON E acetate (PRED FORTE) 1 % ophthalmic suspension drops 2020-02 00:00: 00 Yes [id number] 1[drp] Place 1 Drop in right eye 4 (four) times daily. [facility] prednisoLON E acetate (PRED FORTE) 1 % ophthalmic suspension drops 2020-02 00:00: 00 Yes [id number] 1[drp] Place 1 Drop in right eye 4 (four) times daily. [facility] valACYclovi r 1 gram tablet 2020-02 00:00: 00 Yes [id number] 1g Take 1 tablet by mouth 3 (three) times daily. [facility] moxifloxaci n (VIGAMOX) 0.5 % ophthalmic drops 2020-02 00:00: 00 12-19 05:59 :00 No [id number] 1[drp] Place 1 Drop in right eye every 1 (one) hour for 5 days. [facility] cyclopentol ate (CYCLOGYL) 2 % ophthalmic drops 2020-02 00:00: 00 12-19 05:59 :00 No [id number] 1[drp] Place 1 Drop in right eye 2 (two) times daily for 5 days. [facility] polymyxin B sulf-trimet hoprim 10,000 unit- 1 mg/mL ophthalmic drops 2020-02 00:00: 00 Yes [id number] 1[drp] Place 1 Drop in right eye every 4 (four) hours. [facility] acetaminoph en-codeine 300-30 mg tablet 2020-02 00:00: 00 Yes [id number] 1{tbl} Take 1 tablet by mouth every 6 (six) hours as needed for Pain (scale 4-6). Indication s: acute pain [facility] neomycin-po lymyxin-dex amethasone (MAXITROL) 3.5 mg/g-10,000 unit/g-0.1 % ophthalmic ointment 2020-02 00:00: 00 Yes [id number] .5[in_u s] Place 0.5 Inches in right eye 4 (four) times daily. [facility] ibuprofen 800 mg tablet 07-24 00:00: 00 Yes [id number] 800mg Take 1 tablet by mouth every 8 (eight) hours as needed for Pain (scale 4-6). [facility] ondansetron (ZOFRAN ODT) 4 mg disintegrat ing tablet 07-24 00:00: 00 Yes [id number] 4mg Take 1 tablet by mouth every 8 (eight) hours as needed for Nausea and Vomiting (N/V). [facility] benzonatate 100 mg capsule 04-14 00:00: 00 Yes [id number] 100mg Take 1 capsule by mouth 3 (three) times daily as needed for Cough. [facility] phenazopyri dine 200 mg tablet 04-16 00:00: 00 Yes 200mg Take 1 tablet by mouth every 8 (eight) hours as needed (bladder spasms). [facility] proMETHazin e 25 mg tablet 04-16 00:00: 00 Yes 25mg Take 1 tablet by mouth every 6 (six) hours as needed for Nausea and Vomiting (N/V). [facility] traMADOL 50 mg tablet 04-16 00:00: 00 Yes 50mg Take 1 tablet by mouth every 6 (six) hours as needed (pain). [facility] Immunizations Ordered Immunization Name Filled Immunization Name Date Status Comments Source TDAP 2021-12-03 00:00:[address] [facility] TDAP 2021-12-03 00:00:[address] [facility] Tdap- (Boostrix, Adacel) Unknown Completed Angelia Sanchez - External Pneumococcal Vaccine, Conjugate 20 Unknown Completed Angelia Sanchez - External FLUCELVAX TRIVALENT PF Unknown [facility]- (Boostrix, Adacel) Unknown Completed Angelia Sanchez - External Pneumococcal Vaccine, Conjugate 20 Unknown Completed Angelia Seybold - External FLUCELVAX TRIVALENT PF Unknown Completed Angelia Seybold - External Tdap- (Boostrix, Adacel) Unknown Completed Angelia Seybold - External Pneumococcal Vaccine, Conjugate 20 Unknown Completed Angelia Seybold - External Tdap- (Boostrix, Adacel) Unknown Completed Angelai Seybold - External Pneumococcal Vaccine, Conjugate 20 Unknown Completed Angelia Seybold - External FLUCELVAX TRIVALENT PF Unknown Completed Angelia Seybold - External TDAP Unknown Completed [facility] Vital Signs Vital Name Observation Time Observation Value Comments S ource BMI 2023-11-27 19:24:00 36.53 kg/m2 Mony ey Seybold - External Systolic blood pressure 2023-11-27 19:24:00 117 mm[Hg] Angelia Seybo ld - External Diastolic blood pressure 2023-11-27 19:24:00 81 mm[Hg] Angelia Seybo ld - External Heart rate 2023-11-27 19:24:00 68 /min Kelse y Seybold - External Respiratory rate 2023-11-27 19:24:00 20 /min Angelia Seybold - External Body height 2023-11-27 19:24:00 144.8 cm Mony ey Seybold - External Body weight 2023-11-27 19:24:00 76.567 kg Mony ey Seybold - External Systolic blood pressure 2023-10-20 13:30:00 118 mm[Hg] Angelia Seybo ld - External Diastolic blood pressure 2023-10-20 13:30:00 68 mm[Hg] Angelia Seybo ld - External Heart rate 2023-10-20 13:30:00 66 /min Kelse y Seybold - External Body temperature 2023-10-20 13:30:00 36.67 Kari Angelia Seybold - External Respiratory rate 2023-10-20 13:30:00 18 /min Angelia Seybold - External Body height 2023-10-20 13:30:00 144.8 cm Mony ey Seybold - External Body weight 2023-10-20 13:30:00 75.297 kg Mony ey Seybold - External BMI 2023-10-20 13:30:00 35.92 kg/m2 Mony ey Seybold - External Oxygen saturation in Arterial blood by Pulse oximetry 2023-10-20 13:30:00 98 /min Angelia Rivasybo ld - External Systolic blood pressure 2023-09-20 06:27:00 107 mm[Hg] [facility] Diastolic blood pressure 2023-09-20 06:27:00 78 mm[Hg] [facility] Heart rate 2023-09-20 06:27:00 72 /min [facility] Body temperature 2023-09-20 06:27:[address] [facility] Respiratory rate 2023-09-20 06:27:00 16 /min [facility] Oxygen saturation in Arterial blood by Pulse oximetry 2023-09-20 06:27:00 97 /min [facility] Body height 2023-09-20 03:34:00 144.8 cm [facility] Body weight 2023-09-20 03:34:00 74.526 kg [facility] BMI 2023-09-20 03:34:00 35.55 kg/m2 [facility] Heart rate 2023-09-19 14:15:00 68 /min Kelse y Seybold - External Body temperature 2023-09-19 14:15:00 36.5 Kari Angelia Seybold - External Respiratory rate 2023-09-19 14:15:00 20 /min Angelia Seybold - External Body height 2023-09-19 14:15:00 144.8 cm Mony ey Seybold - External Body weight 2023-09-19 14:15:00 75.807 kg Mony ey Seybold - External BMI 2023-09-19 14:15:00 36.17 kg/m2 Mony ey Seybold - External Oxygen saturation in Arterial blood by Pulse oximetry 2023-09-19 14:15:00 99 /min Angelia ybo ld - External Systolic blood pressure 2023-09-19 14:15:00 122 mm[Hg] Angelia Seybo ld - External Diastolic blood pressure 2023-09-19 14:15:00 70 mm[Hg] Angelia Seybo ld - External Systolic blood pressure 2022-02-27 11:00:00 164 mm[Hg] [facility] Diastolic blood pressure 2022-02-27 11:00:00 105 mm[Hg] [facility] Heart rate 2022-02-27 11:00:00 78 /min [facility] Body temperature 2022-02-27 11:00:[address] [facility] Respiratory rate 2022-02-27 11:00:00 18 /min [facility] Body height 2022-02-27 11:00:00 144.8 cm [facility] Body weight 2022-02-27 11:00:00 77.111 kg [facility] BMI 2022-02-27 11:00:00 36.79 kg/m2 [facility] Oxygen saturation in Arterial blood by Pulse oximetry 2022-02-27 11:00:00 96 /min [facility] Systolic blood pressure 2021-10-02 23:12:00 142 mm[Hg] [facility] Diastolic blood pressure 2021-10-02 23:12:00 91 mm[Hg] [facility] Heart rate 2021-10-02 23:12:00 75 /min [facility] Body temperature 2021-10-02 23:12:[address] [facility] Respiratory rate 2021-10-02 23:12:00 15 /min [facility] Body height 2021-10-02 23:12:00 144.8 cm [facility] Body weight 2021-10-02 23:12:00 76.204 kg [facility] BMI 2021-10-02 23:12:00 36.35 kg/m2 [facility] Oxygen saturation in Arterial blood by Pulse oximetry 2021-10-02 23:12:00 98 /min [facility] Body weight 2020-12-16 20:57:00 74.844 kg [facility] BMI 2020-12-16 20:57:00 35.71 kg/m2 [facility] Procedures Procedure Date / Time Performed Performing Clinicia n Source [facility] FORM 2022-05-31 13:03:36 Doctor Unassigned, [place] [facility] POCT TEST 2022-02-27 11:18:[address] [facility] RAPID INFLUENZA A/B 2022-02-27 11:17:[address] [facility] COVID-19 (ID NOW RAPID TESTING) 2022-02-27 11:17:[address] [facility] CONSENT/REFUSAL FOR DIAGNOSIS AND TREATMENT 2022-02-27 10:48:36 Doctor Unassigned, [place] [facility] XR WRIST 3+ VW RIGHT 2021-10-02 23:30:[address] [facility] NOTICE OF PRIVACY PRACTICES 2021-10-02 23:06:12 Doctor Unassigned, [place] [facility] CONSENT/REFUSAL FOR DIAGNOSIS AND TREATMENT 2021-10-02 23:05:51 Doctor Unassigned, [place] [facility] TREAT AND DIAGNOSE FORM 2020-12-21 19:22:14 Doctor Unassigned, [place] [facility] Encounters Start Date/Time End Date/Time Encounter Type Admission Type Attending [facility] Facility Care Department Encounter ID Source 2024-02-05 08:30:00 2024-02-05 08:30:00 Outpatient FARIDEH CAZARES [id number] [facility] 2024-01-19 09:00:00 2024-01-19 09:00:00 Outpatient ETHAN MOBLEY [id number] [facility] 2024-01-09 13:30:00 2024-01-09 13:30:00 Outpatient MISAEL GODWIN [id number] [facility] 2024-01-08 00:00:00 2024-01-08 00:00:00 Outpatient ETHAN MOBLEY [id number] [facility] 2024-01-08 00:00:00 2024-01-08 00:00:00 Outpatient FARIDEH CAZARES [id number] [facility] 2024-01-03 00:00:00 2024-01-03 00:00:00 Outpatient ETHAN MOBLEY ANGELIA SILVERMAN [id number] [facility] 2024-01-01 09:45:00 2024-01-01 09:45:00 Outpatient FARIDEH CAZARES [facility]ILVER[facility] [id number] [facility] 2023-12-22 14:00:00 2023-12-22 14:00:00 Outpatient ANGELIA SILVERMAN [id number] [facility] 2023-12-22 09:20:00 2023-12-22 09:20:00 Outpatient ANGELIA SILVERMAN [id number] [facility] 2023-12-18 11:40:00 2023-12-18 11:40:00 Outpatient LABPhill ANGELIA SILVERMAN [id number] [facility] 2023-12-18 10:45:00 2023-12-18 10:45:00 Outpatient SERAFIN YONATAN ANGELIA SILVERMAN [id number] [facility] 2023-12-08 10:45:00 2023-12-08 10:45:00 Outpatient ANGELIA SILVERMAN [id number] [facility] 2023-12-04 00:00:00 2023-12-04 00:00:00 Outpatient ITZ ETHAN ANGELIA SILVER[facility] [id number] [facility] 2023-11-27 15:00:00 2023-11-27 15:00:00 [id number] [facility]02 15:15:00 2023-11-02 15:15:00 Outpatient [facility]EL WILSON [id number] [facility] 2023-10-24 15:00:00 2023-10-24 15:00:00 Outpatient STEWART BALBEUNA [id number] [facility] 2023-10-20 08:30:00 2023-10-20 08:30:00 Outpatient ETHAN MOBLEY [id number] [facility] 2023-10-20 00:00:00 2023-10-20 00:00:00 Outpatient TEHAN [facility]OB[facility] [id number] [facility] 2023-09-24 00:00:00 2023-09-24 00:00:00 Outpatient ETHAN MOBLEY ANGELIA [id number] [facility] 2023-09-19 22:38:00 2023-09-20 01:35:00 Emergency X BOB BUCKLEY WAKILI [facility] [id number] [facility] 2023-09-19 22:38:00 2023-09-20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
--- NOTE | 2024-01-10 18:26 | ER ---
Nurse's Notes [facility] Name: Monday Mackenzie Age: 38 yrs Sex: Female : 1985 Arrival Date: 01/10/2024 Time: 17:53 Bed IW4 Private MD: Diagnosis: Presentation: 01/09 18:15 Chief complaint: pt not in lobby when called, registration reports pt stated she was iw just going to go home. ED Course: 17:54 Patient arrived in ED. mr 18:03 [facility] kb 18:03 Juan Crowley MD is Attending Physician. kb Administered Medications: No medications were administered Outcome: 18:25 Patient left the ED. iw Signatures: Gloria Rehman FNP-C FNP-Elvie Scanlon, Reg Reg Melony Browning, RN RN iw
== END 2024-01-10 18:25 | disposition left against medical advice (07) ==
LOC: ER 17:53
DX: Z53.21 Procedure and treatment not carried out due to patient leaving prior to being seen by health care provider (principal)
CPT/HCPCS: 99281

== ENCOUNTER 2024-06-28 16:59 | Emergency (ER) | payer OTHER ==
[2024-06-28] MEDS ORDERED: MORPHINE 4 MG/ML SYR ONE ×2 (18:18→20:37)
[2024-06-28] MEDS ORDERED: ONDANSETRON 4 MG/2 ML VIAL ONE ×2 (18:18→20:37)
[2024-06-28 18:59] LABS: Absolute Eosinophils 0.1 K/uL (0-0.5); Absolute Lymphocytes (CBC) 2.1 K/uL (0.7-4.9); Absolute Monocytes 0.3 K/uL (0.1-1.3); Absolute Neutrophil 2.9 K/uL (1.8-8.0); Basophils % 0.2 % (0-1.3); Eosinophils % 1.3 % (0-4.4); Hematocrit 28.3 % (36.0-45.0); Hemoglobin 9.3 g/dL (12.0-15.0); Lymphocytes % 39.9 % (15.3-44.8); MCH 25.7 pg (27.0-35.0); MCV 77.7 fL (80-100); MPV 9.4 fL (7.6-11.3); Monocytes % 4.7 % (3.3-12.3); Neutrophils % 53.9 % (41.7-73.7); Nucleated Red Blood Cells % 0.1 % (0-0); Platelets 250 thou/uL (152-406); RBC Red Blood Cell Count 3.64 M/uL (3.86-4.86); Red Cell Distribution Width 28.9 % (12.1-15.2)
[2024-06-28 19:09] LABS: Albumin 3.4 g/dL (3.4-5.0); Anion Gap 6.7 mEq/L (5.0-15.0); Bilirubin Total 0.5 mg/dL (0.2-1.0); Globulin 3.3 g/dL (2.3-3.5); Potassium 3.7 mEq/L (3.5-5.1); Protein, Total 6.7 g/dL (6.4-8.2)
--- NOTE | 2024-06-28 20:14 | RAD REPORT ---
EXAMINATION: CT ABDOMEN AND PELVIS WITH CONTRAST CLINICAL INDICATION: rectal pain; s/p hyst on Monday;Abd pain TECHNIQUE: CT abdomen and pelvis was performed, after the administration of IV contrast, as per [facility] protocol. Axial, sagittal and coronal reconstructions were obtained. One or more of the following dose reduction techniques were used: Automated exposure control, adjustment of the mA and k V according to patient size, and iterative reconstruction. Unless otherwise specified, incidental findings do not require dedicated imaging follow-up. COMPARISON: 10/15/2018 FINDINGS: LOWER CHEST: Moderate atelectasis is present in both lung bases, greater on the right. LIVER: 3.4 cm homogeneously enhancing lesion in the right lobe is likely benign, mildly increased in size since prior study. Contracted gallbladder. SPLEEN: Normal size. No focal lesion. PANCREAS: No mass, ductal dilation, or samantha-pancreatic fluid. ADRENALS: Normal; no mass. KIDNEYS: Normal size and contour. No hydronephrosis. Small benign left renal cyst. GASTROINTESTINAL TRACT: No evidence of free air, significant intra-abdominal free fluid, bowel obstru ction or abscess. Moderate stool is present at the colon. APPENDIX: Appendix not visualized, but no inflammatory changes in region of appendix. LYMPH NODES: No lymphadenopathy. MUSCULOSKELETAL: No acute or suspicious osseous abnormality. ADDITIONAL FINDINGS: Air is present in the soft tissues of the pelvis. Small amount of air is present in the urinary bladder. IMPRESSION: Evidence of recent pelvic surgery without abscess or hematoma. Air is present in the soft tissues of the pelvis. A small amount of air is present in the urinary bladder which may be related to instrumentation or infection. Homogeneously enhancing right lobe liver mass which has mildly increased in size and is likely benign . Atelectasis is present in both lung bases, greater on the right.
[2024-06-28 21:21] LABS: Anisocytosis 2+; Blood Morphology Comment NOTED (NOT SEEN); Hypochromasia 1+; Microcytosis SLIGHT; Platelet Estimate ADEQ; White Blood Cell Scan OK (OK)
--- NOTE | 2024-06-28 21:36 | ER ---
Nurse's Notes [facility] Name: Monday Mackenzie Age: 38 yrs Sex: Female : 1985 Arrival Date: 06/28/2024 Time: 16:59 Bed 6 Private MD: Diagnosis: Post operative pain , acute ;Acute pelvic pain, Post Hysterectomy pain , chronic liver mass Presentation: 06/28 17:58 Chief complaint: Patient states: HAD A PARTIAL HYSTERECTOMY 06/25 AND BEGAN HAVING dd2 RECTAL PAIN THAT DAY, AND BLE SWELLING X1 DAY. PT REPORTS NO BM X 3 DAYS. Coronavirus screen: At this time, the client does not indicate any symptoms associated with coronavirus-19. Ebola Screen: No symptoms or risks identified at this time. Initial Sepsis Screen: Does the patient meet any 2 criteria? No. Patient's initial sepsis screen is negative. Does the patient have a suspected source of infection? No. Patient's initial sepsis screen is negative. Risk Assessment: Do you want to hurt yourself or someone else? Patient reports no desire to harm self or others. Onset of symptoms was June 25, 2024. 17:58 Method Of Arrival: Ambulatory dd2 17:58 Acuity: ANTONETTE 3 dd2 Triage Assessment: 18:01 General: Appears uncomfortable, Behavior is calm, cooperative, appropriate for age. dd2 Pain: Complains of pain in RECTAL. HEAD OF MARKETING ADOMETRY: 18:01 LMP N/A - Hysterectomy, Not dd2 Historical: - Allergies: 18:01 Jardiance; dd2 - PMHx: 18:01 Anemia; Diabetes - NIDDM; High Cholesterol (Diabetes - NIDDM); Hypertensive disorder; dd2 - PSHx: 18:01 section; x4; PARTIAL HYSTERECTOMY ( section); dd2 - Immunization history:: Adult Immunizations up to date. - Infectious Disease History:: Denies. - Social history:: Smoking status: Patient/guardian denies using tobacco. Screenin:44 [facility] ED Fall Risk Assessment (Adult) History of falling in the last 3 months, kc6 including since admission No falls in past 3 months (0 pts) Confusion or Disorientation No (0 pts) Intoxicated or Sedated No (0 pts) Impaired Gait No (0 pts) Mobility Assist Device Used No (0 pt) Altered Elimination No (0 pt) Score/Fall Risk Level 0 - 2 = Low Risk Oriented to surroundings. Abuse screen: Denies threats or abuse. Denies injuries from another. Nutritional screening: No deficits noted. Tuberculosis screening: No symptoms or risk factors identified. Assessment: 18:44 General: Appears in no apparent distress. uncomfortable, well groomed, well developed, kc6 Behavior is calm, cooperative, appropriate for age. Pain: Complains of pain in right lower quadrant and left lower quadrant Quality of pain is described as crampy, dull, Pain began 1 day ago. Is continuous, Noted to be grimacing, resistant to movement. Neuro: Level of Consciousness is awake, alert, obeys commands, Oriented to person, place, time, situation, Appropriate for age. GI: Abdomen is round Bowel sounds present X 4 quads. Abd is soft X 4 quads Abdomen is tender to palpation in right lower quadrant and left lower quadrant Reports lower abdominal pain, constipation, cramping, Patient currently denies diarrhea, nausea, vomiting. : No signs and/or symptoms were reported regarding the genitourinary system. EENT: No signs and/or symptoms were reported regarding the EENT system. Derm: No signs and/or symptoms reported regarding the dermatologic system. Skin is intact, is healthy with good turgor, Skin is pink, warm \T\ dry. Musculoskeletal: Circulation, motion, and sensation intact. Range of motion: intact in all extremities, Swelling present in right leg and left leg. 19:24 Reassessment: Assume care patient. She is alert and oriented x3, pain 5/10 after pain jj7 meds, Patient states feeling better. Patient states symptoms have improved. 20:47 Reassessment: Pt went to CT and to bathroom. Stated feeling pain again. informed. jj7 Meds ordered. 21:45 Reassessment: Patient is alert, oriented x 3, equal unlabored respirations, skin jj7 warm/dry/pink. Patient states feeling better. Patient states symptoms have improved. Vital Signs: 17:58 BP 136 / 92; Pulse 53; Resp 16; Temp 97.5; Pulse Ox 99% on R/A; Weight 73.03 kg; Height dd2 4 ft. 9 in. ; Pain 10/10; 19:26 BP 150 / 79; Pulse 52; Resp 18; Pulse Ox 100% on R/A; jj7 20:47 BP 144 / 77; Pulse 60; Resp 18; Pulse Ox 95% ; jj7 21:45 BP 145 / 84; Pulse 62; Resp 20; Temp 98.3; Pulse Ox 96% ; Pain 2/10; jj7 17:58 Body Mass Index 34.84 (73.03 kg, 144.78 cm) dd2 17:58 Pain Scale: Adult dd2 21:45 Pain Scale: Adult j7 ED Course: 17:05 Patient arrived in ED. cj3 17:17 Aurelio Baez DO is Attending Physician. ms3 18:01 Triage completed. dd2 18:01 Arm band placed on right wrist. dd2 18:22 Ute Manzo, RN is Primary Nurse. kc6 18:43 Patient has correct armband on for positive identification. Bed in low position. Call kc6 light in reach. Side rails up X 1. Pulse ox on. NIBP on. Door closed. Noise minimized. Lights dimmed. Warm blanket given. Pillow given. Verbal reassurance given. 18:43 Initial lab(s) drawn, by me, sent to lab. Inserted saline lock: 22 gauge in right kc6 antecubital area, using aseptic technique. Blood collected. Flushed with 10 mL NS. Patient maintains SpO2 saturation greater than 95% on room air. 19:30 Provided Education on: Use of call morris.. Diet: Patient is NPO. jj7 20:05 CT Abd/Pelvis - IV Contrast Only In Process Unspecified. EDMS 20:06 Attending Physician role handed off by Aurelio Baez DO sp4 20:06 Dennys Hernandez MD is Attending Physician. sp4 20:23 Assisted to bathroom. jj7 21:45 No provider procedures requiring assistance completed. IV discontinued, intact, jj7 bleeding controlled, No redness/swelling at site. Pressure dressing applied. Administered Medications: 18:43 Drug: morphine IVP or IV 4 mg IVP once over 4 mins Route: IVP; Infused Over: 4 mins; kc6 Site: right antecubital; 19:28 Follow up: Response: No adverse reaction; Marked relief of symptoms; Pain is decreased jj7 18:43 Drug: Ondansetron IVP 4 mg IVP once; over 2 minutes Route: IVP; Site: right antecubital;kc6 19:28 Follow up: Response: No adverse reaction; Marked relief of symptoms; Pain is decreased jj7 20:45 Drug: Ondansetron IVP 4 mg IVP once; over 2 minutes Route: IVP; Site: right antecubital;jj7 21:45 Follow up: Response: Marked relief of symptoms; Pain is decreased jj7 20:46 Drug: morphine IVP or IV 4 mg IVP once over 4 mins Route: IVP; Infused Over: 4 mins; jj7 Site: right antecubital; 21:45 Follow up: Response: Marked relief of symptoms; Pain is decreased jj7 Medication: 19:29 VIS not applicable for this client. jj7 Outcome: 21:35 Discharge ordered by MD. steiner 21:45 Discharged to home ambulatory, with family, jj7 21:45 Condition: improved 21:45 Discharge instructions given to patient, Instructed on discharge instructions, medication usage, Demonstrated understanding of instructions, medications, Prescriptions given X 2, 21:46 Patient left the ED. jj7 Signatures: Dispatcher [employer] EDMS Aurelio Baez DO DO ms3 Ute Manzo RN RN kc6 Kayy Blair RN RN jj7 Dennys Hernandez MD MD sp4 RISSA MATA RN RN dd2 Poppy Blair 3
--- NOTE | 2024-06-28 21:36 | EDPHYS ---
Physician Documentation [facility] Name: Monday Rosangela Age: 38 yrs Sex: Female : 1985 Arrival Date: 06/28/2024 Time: 16:59 Bed 6 Private MD: ED Physician Dennys Hernandez HPI: 06/28 18:12 This 38 yrs old Female presents to ER via Ambulatory with complaints of Post ms3 Surgical Complications. 18:12 38-year-old female with past medical history of anemia, diabetes, hyperlipidemia, ms3 hypertension presents to the emergency department for rectal pain that began after her hysterectomy on Monday. Patient notes she is also having bilateral lower extremity swelling. Patient rates her discomfort a 10/10. Patient notes she has not taken her pain medications today.. PATIENT RELATIONS REPRESENTATIVE: 18:01 LMP N/A - Hysterectomy, Not dd2 Historical: - Allergies: 18:01 Jardiance; dd2 - PMHx: 18:01 Anemia; Diabetes - NIDDM; High Cholesterol (Diabetes - NIDDM); Hypertensive disorder; dd2 - PSHx: 18:01 section; x4; PARTIAL HYSTERECTOMY ( section); dd2 - Immunization history:: Adult Immunizations up to date. - Infectious Disease History:: Denies. - Social history:: Smoking status: Patient/guardian denies using tobacco. ROS: 18:12 Constitutional: Negative for fever, and chills. Cardiovascular: Negative for chest ms3 pain, and palpitations. Respiratory: Negative for shortness of breath, cough, wheezing, and pleuritic chest pain, 18:12 Abdomen/GI: Positive for abdominal pain, constipation, Negative for nausea, vomiting, and diarrhea, Exam: 18:12 Constitutional: This is a well developed, well nourished patient who is awake, alert, ms3 and in no acute distress. Cardiovascular: Regular rate and rhythm with a normal S1 and S2. No gallops, murmurs, or rubs. Normal PMI, no JVD. No pulse deficits. Respiratory: Lungs have equal breath sounds bilaterally, clear to auscultation and percussion. No rales, rhonchi or wheezes noted. No increased work of breathing, no retractions or nasal flaring. Skin: Warm, dry with normal turgor. Normal color with no rashes, no lesions, and no evidence of cellulitis. MS/ Extremity: Pulses equal, no cyanosis. Neurovascular intact. Full, normal range of motion. 18:12 Abdomen/GI: Bowel sounds: diminished, in all quadrants, Palpation: moderate abdominal tenderness, in all quadrants, Vital Signs: 17:58 BP 136 / 92; Pulse 53; Resp 16; Temp 97.5; Pulse Ox 99% on R/A; Weight 73.03 kg; Height dd2 4 ft. 9 in. ; Pain 10/10; 19:26 BP 150 / 79; Pulse 52; Resp 18; Pulse Ox 100% on R/A; jj7 20:47 BP 144 / 77; Pulse 60; Resp 18; Pulse Ox 95% ; jj7 21:45 BP 145 / 84; Pulse 62; Resp 20; Temp 98.3; Pulse Ox 96% ; Pain 2/10; jj7 17:58 Body Mass Index 34.84 (73.03 kg, 144.78 cm) dd2 17:58 Pain Scale: Adult dd2 21:45 Pain Scale: Adult jj7 MDM: 18:05 Medical Screening Exam initiated ms3 18:12 Differential diagnosis: Constipation versus bowel perforation versus diverticulitis. ms3 21:33 Data reviewed: vital signs, nurses notes, lab test result(s), radiologic studies, CT sp4 scan. Consideration of Admission/Observation Escalation of care including admission/observation considered. ED course: EXAMINATION: CTABDOMEN AND PELVIS WITH CONTRAST CLINICAL INDICATION: rectal pain; s/p hyst on Monday;Abd pain TECHNIQUE: CT abdomen and pelvis was performed, after the administration of IV contrast, as per department protocol. Axial, sagittal and coronal reconstructions were obtained. One or more of the following dose reduction techniques were used: Automated exposure control, adjustment of the mA and kV according to patient size, and iterative reconstruction. Unless otherwise specified, incidental findings do not require dedicated imaging follow-up. COMPARISON: 10/15/2018 FINDINGS: LOWER CHEST: Moderate atelectasis is present in both lung bases, greater on the right. LIVER: 3.4 cm homogeneously enhancing lesion in the right lobe is likely benign, mildly increased in size since prior study. Contracted gallbladder. SPLEEN: Normal size. No focal lesion. PANCREAS: No mass, ductal dilation, or samantha-pancreatic fluid. ADRENALS: Normal; no mass. KIDNEYS: Normal size and contour. No hydronephrosis. Small benign left renal cyst. GASTROINTESTINAL TRACT: No evidence of free air, significant intra-abdominal free fluid, bowel obstruction or abscess. Moderate stool is present at the colon. APPENDIX: Appendix not visualized, but no inflammatory changes in region of appendix. LYMPH NODES: No lymphadenopathy. MUSCULOSKELETAL: No acute or suspicious osseous abnormality. [address] [id number] Final Radiology Report Name: ROSANGELA, MONDAY Age: 38y Date: 06/28/2024 6:12 PM : 1985 Study: Abdomen Pelvis W Contrast Requesting Physician: Aurelio Baez [id number] ROSANGELA, MONDAY Page 1 of 2 [id number] Abdomen Pelvis W Contrast ADDITIONAL FINDINGS: Air is present in the soft tissues of the pelvis. Small amount of air is present in the urinary bladder. IMPRESSION: Evidence of recent pelvic surgery without abscess or hematoma. Air is present in the soft tissues of the pelvis. A small amount of air is present in the urinary bladder which may be related to instrumentation or infection. Homogeneously enhancing right lobe liver mass which has mildly increased in size and is likely benign. Atelectasis is present in both lung bases, greater on the right. . 06/28 18:12 Order name: CBC with Diff; Complete Time: 21:32 ms3 06/28 18:12 Order name: CMP; Complete Time: 19:13 ms3 06/28 21:22 Order name: CBC Smear Scan; Complete Time: 21:32 EDMS 06/28 18:12 Order name: CT Abd/Pelvis - IV Contrast Only; Complete Time: 20:53 ms3 06/28 18:12 Order name: IV Saline Lock; Complete Time: 18:43 ms3 06/28 18:12 Order name: Labs collected and sent; Complete Time: 18:43 ms3 Administered Medications: 18:43 Drug: morphine IVP or IV 4 mg IVP once over 4 mins Route: IVP; Infused Over: 4 mins; kc6 Site: right antecubital; 19:28 Follow up: Response: No adverse reaction; Marked relief of symptoms; Pain is decreased jj7 18:43 Drug: Ondansetron IVP 4 mg IVP once; over 2 minutes Route: IVP; Site: right antecubital;kc6 19:28 Follow up: Response: No adverse reaction; Marked relief of symptoms; Pain is decreased jj7 20:45 Drug: Ondansetron IVP 4 mg IVP once; over 2 minutes Route: IVP; Site: right antecubital;jj7 21:45 Follow up: Response: Marked relief of symptoms; Pain is decreased jj7 20:46 Drug: morphine IVP or IV 4 mg IVP once over 4 mins Route: IVP; Infused Over: 4 mins; jj7 Site: right antecubital; 21:45 Follow up: Response: Marked relief of symptoms; Pain is decreased jj7 Disposition Summary: 06/28/24 21:35 Discharge Ordered Notes: Location: Home sp4 Problem: new sp4 Symptoms: have improved sp4 Condition: Stable sp4 Diagnosis - Post operative pain , acute sp4 - Acute pelvic pain, Post Hysterectomy pain , chronic liver mass sp4 Followup: sp4 - With: Private Physician - When: 10 - 14 days - Reason: Recheck today's complaints Discharge Instructions: - Discharge Summary Sheet sp4 - Abdominal Hysterectomy, Care After, [id number] sp4 Forms: - Patient Portal Instructions sp4 Prescriptions: - acetaminophen-codeine 300-60 mg Oral tablet - take 1 tablet ORAL route every 6 hours as needed for pain; 30 tablet; Refills: sp4 0, Product Selection Permitted - promethazine 25 mg Oral Tablet - take 1 tablet ORAL route every 6 hours As needed; 20 tablet; Refills: 0, sp4 Product Selection Permitted Signatures: Dispatcher [employer] EDAurelio Multani DO DO ms3 Ute Manzo RN RN kc6 Kayy Blair RN RN jj7 Dennys Hernandez MD MD sp4 RISSA MATA RN RN dd2
[2024-06-28 21:56] VITALS: BP 145/84; TEMP 98.3; O2SAT 96
== END 2024-06-28 21:46 | disposition home or self-care (01) ==
LOC: ER 16:59
DX: G89.18 Other acute postprocedural pain (principal); Z90.711 Acquired absence of uterus with remaining cervical stump; K76.89 Other specified diseases of liver
CPT/HCPCS: 85025; 36415; 80053; 74177; 96375; 96374; 99284; Q9967; J2405 ×2